=== PATIENT | female | born 1970 | race Caucasian/White ===

== ENCOUNTER 2020-11-13 08:00 | Outpatient (RCR) | payer OTHER, SELFPAY | END 2020-12-25 16:01 | disposition home or self-care (01) | LOC: PT.CARL 08:00 | PROVIDERS: Visit Provider Orthopaedic Surgery Foot and Ankle Surgery | DX: M79.672 Pain in left foot (principal) | CPT/HCPCS: 97010; 97014; 97035; 97110; 97112; 97140; 97163; 97164; G0283 ==

== ENCOUNTER 2021-06-23 11:45 | Emergency (ER) | payer OTHER, SELFPAY ==
[2021-06-23 13:45] VITALS: BP 150/100; PULSE 84; RESP 16; TEMP 37; O2SAT 100; BMI 25.1
[2021-06-23 14:48] LABS: UTC Influenza A Antigen Negative (Negative); UTC Strep Screen (Rapid) Negative (Negative)
[2021-06-23 14:49] LABS: UTC Influenza B Antigen Negative (Negative)
--- NOTE | 2021-06-23 14:52 | HMH.EDUTC ---
[facility] [place] Clinical Impression: Influenza A Disposition: Home, Self-Care Condition on Discharge: Good Instructions: DI for Influenza -- Adult Additional Instructions: covid swab was sent to lab, call tomorrow for results. self isolate until test results are known to be negative No sign of a bacterial infection. Likely viral. Viruses can take 7-14 days to run their course. Nasal saline and bulb syringe or nose Marlene to remove nasal drainage to help with nasal congestion. Hard to eat, drink, sleep with nasal congestion so important to keep this cleaned out. Monitor temp. Tylenol or Motrin as needed for pain or fever Encourage fluids, water, Gatorade, Powerade, Pedialyte if infant/toddler/child Warm salt water gargles Warm fluids Sore throat lozenges Sleep elevated Humidifier/vaporizer Follow-up immediately for new or worsening symptoms or no noticeable improvement over the next 48-72 hours. Prescriptions: Oseltamivir Phosphate [Tamiflu 75mg Capsule] 75 mg PO BID #10 cap Prescription Printed Referrals: Rosa Elena Anguiano APRN [Primary Care Provider] - Forms: Work/School Release Time of Disposition: 15:00 Medical Decision Making - Juanjose Inquiry Pt receiving controlled substance: No Vital Signs: 06/23/21 13:45 Temperature 98.6 F Temperature Source Oral Pulse Rate [Right] 84 Respiratory Rate 16 Blood Pressure [Right Arm] 150/100 H Blood Pressure Mean [Right Arm] 116 Blood Pressure Source [Right Arm] Automatic Cuff Blood Pressure Position [Right Arm] Sitting 02 Sat by Pulse Oximetry 100 Oxygen Delivery Method Room Air - Lab Data Lab Results 06/23/21 14:38: Influenza Type A Ag Negative, Influenza Type B Ag Negative 06/23/21 14:38: Strep Scn Rapid Clinic Negative Orders (Tests/Meds): ORDERS Category Date Time Status Covid-19 Nasal PCR ([facility]) Routine Lab 06/23/21 13:44 Received Strep Screen Confirmation Stat Micro 06/23/21 14:38 Received [facility] [place] - General Chief complaint: Urgent Treatment Center Stated complaint: fever/chills, cough, h/a, sore throat Time Seen by Provider: 06/23/21 14:52 Mode of Arrival: Ambulatory Source of Information: Patient Limitations: No Limitations Description of Symptoms (Recalled from Triage Doc. by RN): pt c/o cough, headache, congestion and chills for 3 days HEENT Symptoms (Recalled from RN notes): Yes Resp Symptoms (Recalled from RN notes): No Skin Symptoms (Recalled from RN notes): No MS Symptoms (Recalled from RN notes): No Functional Status (Recalled from RN notes): na - History of Present Illness Provider Complaint: 51 yr old female presents for cough, chills,body aches and headache for 2-3 days - Related Data Previous Rx's Medication Instructions Recorded Oseltamivir Phosphate [Tamiflu 75 mg PO BID #10 cap 06/23/21 75mg Capsule] Allergies Allergy/AdvReac Type Severity Reaction Status Date / Time No Known Allergies Allergy Verified 06/23/21 13:55 - Worker's Comp Is this a Worker's Comp case?: No [facility] History - Hepatitis A Screen Drug use history?: No High risk sexual behaviors?: No History of sexually transmitted infection?: No Currently employed?: No Childcare worker?: No Do you have indoor plumbing?: Yes Do you have electricity?: Yes Attestation statement:: This patient has been screened for Hepatitis A risk factors. I have reviewed the patient's past medical history: Yes ROS Obtained: Yes Systems reviewed as appropriate & no additional complaints - Constitutional Constitutional: Reports system reviewed and no additional complaints, except as docu, Reports body ache, Reports chills, Reports fatigue, Reports fever(s) - Eyes Eyes: Reports system reviewed and no additional complaints, except as docu, Denies blurry vision - ENT Ears, Nose, Mouth, and Throat: Reports system reviewed and no additional complaints, except as docu, Reports headache(s), Reports nasal congestion, Reports nasal discharge, Rep
[2021-06-23 15:01] VITALS: BP 150/100; PULSE 84; RESP 16; TEMP 37; O2SAT 100
== END 2021-06-23 15:09 | disposition home or self-care (01) ==
PROVIDERS: Emergency Provider Nurse Practitioner Family; PCP Nurse Practitioner Family
DX: J10.1 Influenza due to other identified influenza virus with other respiratory manifestations (principal)
CPT/HCPCS: 87804; 87880; 99203; C9803; G0463; U0003; U0005

== ENCOUNTER → 2021-07-09 09:57 | Outpatient (CLI) | payer OTHER, SELFPAY ==
[2021-07-09 10:00] LABS: Adenovirus,PCR Not Detected (NotDetected); Bordetella Pertussis Not Detected (NotDetected); Chlamydophila Pneumoniae, PCR Not Detected (NotDetected); Coronavirus 229E Not Detected (NotDetected); Coronavirus NL63 Not Detected (NotDetected); Coronavirus OC43 Not Detected (NotDetected); Coronovirus HKU1,PCR Not Detected (NotDetected); Human Metapneumovirus Not Detected (NotDetected); Influenza A, PCR Not Detected (NotDetected); Influenza AH1, 2009 Not Detected (NotDetected); Influenza AH1, PCR Not Detected (NotDetected); Influenza AH3,PCR Not Detected (NotDetected); Influenza B, PCR Not Detected (NotDetected); Mycoplasma Pneumoniae, PCR Not Detected (NotDetected); Parainfluenza 1, PCR Not Detected (NotDetected); Parainfluenza 2, PCR Not Detected (NotDetected); Parainfluenza 3, PCR Not Detected (NotDetected); Parainfluenza 4, PCR Not Detected (NotDetected); Respiratory Syncytial Virus Not Detected (NotDetected); Rhinovirus/Enterovirus Not Detected (NotDetected)
[2021-07-09 17:07] LABS: Coronavirus 19, PCR Detected (NotDetected)
== END ==
PROVIDERS: Visit Provider Nurse Practitioner Family
DX: U07.1 COVID-19 (principal); R05.9 Cough, unspecified; J06.9 Acute upper respiratory infection, unspecified
CPT/HCPCS: 87581; 87632; 87798; C9803; U0003; U0005

== ENCOUNTER 2021-07-30 08:00 | Outpatient (RCR) | payer MEDICARE, OTHER, SELFPAY | END 2021-09-03 15:03 | disposition home or self-care (01) | LOC: OT 08:00 | PROVIDERS: PCP Nurse Practitioner Family; Visit Provider Orthopaedic Surgery | DX: M18.11 Unilateral primary osteoarthritis of first carpometacarpal joint, right hand (principal); Z96.691 Finger-joint replacement of right hand | CPT/HCPCS: 97010; 97014; 97035; 97110; 97140; 97165; G0283 ==

== ENCOUNTER → 2022-03-04 07:34 | Outpatient (CLI) | payer MEDICARE, OTHER, SELFPAY | PROVIDERS: PCP Family Medicine; Visit Provider Family Medicine | DX: E23.2 Diabetes insipidus (principal) | CPT/HCPCS: 82533 ==

== ENCOUNTER → 2022-03-14 10:15 | Outpatient (CLI) | payer MEDICARE, OTHER, SELFPAY | PROVIDERS: PCP Physician Assistant; Visit Provider Physician Assistant | DX: R30.0 Dysuria (principal); B96.29 Other Escherichia coli [E. coli] as the cause of diseases classified elsewhere | CPT/HCPCS: 87086; 87088; 87186 ==

== ENCOUNTER → 2022-04-07 12:00 | Outpatient (CLI) | payer MEDICARE, OTHER, SELFPAY | PROVIDERS: PCP Family Medicine; Visit Provider Family Medicine | DX: R30.0 Dysuria (principal) | CPT/HCPCS: 87086 ==

== ENCOUNTER → 2022-07-16 13:55 | Outpatient (CLI) | payer MEDICARE, OTHER, SELFPAY ==
--- NOTE | 2022-07-16 14:06 | XR_ITS ---
FINAL REPORT CLINICAL HISTORY: R HIP PAIN FINDINGS: AP and frog leg views of the right hip with an AP pelvis were obtained. There is no prior exam for comparison. There is no acute fracture or dislocation. There is mild degenerative disease of the hips, asymmetric to the left. There is widening of the pubic symphysis, age indeterminate. Soft tissues are within normal limits. IMPRESSION: 1. Mild degenerative disease of the hips. 2. Age-indeterminate widening of the pubic symphysis. Reviewed, Interpreted and Dictated by Nirmala Mcdermott MD Transcribed by Melly Motley Authenticated and [facility]
== END ==
PROVIDERS: PCP Family Medicine; Visit Provider Physician Assistant
DX: M25.551 Pain in right hip (principal)
CPT/HCPCS: 73502

== ENCOUNTER 2022-08-19 08:00 | Outpatient (RCR) | payer MEDICARE, OTHER, SELFPAY | END 2022-09-18 16:15 | disposition home or self-care (01) | LOC: PT 08:00 | PROVIDERS: PCP Family Medicine; Visit Provider Anesthesiology | DX: M25.551 Pain in right hip (principal) | CPT/HCPCS: 97010; 97014; 97035; 97110; 97140; 97163; G0283 ==

== ENCOUNTER → 2022-10-15 17:04 | Outpatient (CLI) | payer MEDICARE, OTHER, SELFPAY | PROVIDERS: PCP Nurse Practitioner Family; Visit Provider Nurse Practitioner Family | DX: N39.0 Urinary tract infection, site not specified (principal) | CPT/HCPCS: 87086 ==

== ENCOUNTER → 2023-05-18 16:00 | Outpatient (CLI) | payer MEDICARE, OTHER, SELFPAY | PROVIDERS: PCP Family Medicine; Visit Provider Family Medicine | DX: R05.9 Cough, unspecified (principal); J02.9 Acute pharyngitis, unspecified; H92.02 Otalgia, left ear | CPT/HCPCS: 87635 ==

== ENCOUNTER 2023-08-14 19:44 | Outpatient (CLI) | payer MEDICARE, OTHER, SELFPAY | END 2023-08-14 23:59 | LOC: LAB.DROPOF 19:45 | PROVIDERS: PCP Nurse Practitioner Family; Visit Provider Nurse Practitioner Family | DX: R30.0 Dysuria (principal) | CPT/HCPCS: 87086 ==

== ENCOUNTER 2023-10-20 10:00 | Outpatient (RCR) | payer MEDICARE, OTHER, SELFPAY | END 2023-11-11 07:55 | disposition home or self-care (01) | LOC: PT 10:00 | PROVIDERS: Visit Provider Orthopaedic Surgery Adult Reconstructive Orthopaedic Surgery | DX: M16.11 Unilateral primary osteoarthritis, right hip (principal); Z96.641 Presence of right artificial hip joint | CPT/HCPCS: 97010; 97110; 97112; 97116; 97163; 97530 ==

== ENCOUNTER 2023-11-16 16:49 | Outpatient (CLI) | payer MEDICARE, OTHER, SELFPAY | END 2023-11-16 23:59 | disposition home or self-care (01) | LOC: LAB.DROPOF 16:50 | PROVIDERS: PCP Family Medicine; Visit Provider Family Medicine | DX: R39.9 Unspecified symptoms and signs involving the genitourinary system (principal); B96.29 Other Escherichia coli [E. coli] as the cause of diseases classified elsewhere | CPT/HCPCS: 87086; 87088; 87186 ==

== ENCOUNTER 2024-05-11 10:10 | Outpatient (CLI) | payer MEDICARE, OTHER, SELFPAY ==
[2024-05-11 16:16] LABS: Basophils % 1.2 % (0.1-2.0); Eosinophils # 0.1 K/mm3 (0.0-0.4); Eosinophils % 1.4 % (0.1-12.0); Hematocrit 37.8 % (37.0-47.0); Hemoglobin 13.3 g/dL (12.2-16.2); Lymphocytes % 29.9 % (10-50); Mean Corpuscular HGB Conc 35.2 g/dL (31.8-35.4); Mean Corpuscular Hemoglobin 34.3 pg (27.0-31.2); Mean Corpuscular Volume 97.5 fl (81-99); Mean Platelet Volume 8.4 fl (7.4-10.4); Monocytes # 0.6 K/mm3 (0.1-1.0); Monocytes % 16.8 % (1.7-9.3); Neutrophils # 1.8 K/mm3 (1.8-7.8); Neutrophils % 50.8 % (37.0-80.0); Platelet Count 262 K/mm3 (142-424); Red Blood Count 3.88 M/mm3 (4.20-5.40); Red Cell Distribution Width 13.4 % (11.5-17.5); White Blood Count 3.5 K/mm3 (4.8-10.8)
[2024-05-11 16:42] LABS: Alanine Aminotransferase 18 U/L (12-78); Albumin Level 4.4 g/dl (3.5-5.0); Albumin/Globulin Ratio 1.5 (1.1-1.8); Alkaline Phosphatase 83 U/L (38-126); Anion Gap 14.5 mEq/L (5-15); Aspartate Amino Transferase 35 U/L (14-36); Bilirubin,Total 0.7 mg/dl (0.2-1.3); Blood Urea Nitrogen 14 mg/dl (7-17); Calcium 9.1 mg/dl (8.4-10.2); Carbon Dioxide 26 mmol/L (22.0-30.0); Chloride 98 mmol/L (98-107); Chol/HDL Ratio 4.8 (1-3.5); Cholesterol 265 mg/dl (140-200); Estimated Glomerular Filt Rate 58 ml/min (>60); GFR (African American) 70 ML/MIN (>60); Glucose 73 mg/dl (74-100); HDL Cholesterol 55 mg/dl (40-60); Potassium 4.5 mmoL/L (3.5-5.1); Sodium 134 mmol/L (136-145); Total Protein,Serum 7.4 g/dl (6.3-8.2); Triglycerides 198 mg/dl (30-150); VLDL Cholesterol 40 mg/dL (0-40)
[2024-05-11 16:51] LABS: Microalbumin/Creatinine Ratio 40.6
[2024-05-11 16:54] LABS: Direct LDL Cholesterol 158.92 mg/dL (100-129)
[2024-05-11 16:57] LABS: Creatinine,Urine Random 125 mg/dL (Not Estab.)
[2024-05-11 17:12] LABS: Thyroid Stimulating Hormone 1.28 uIU/mL (0.465-4.68)
[2024-05-11 17:59] LABS: HIV (1&2) Antibody Rapid NONREACTIVE (NONREACTIVE)
[2024-05-12 05:15] LABS: HCV Ab Non Reactive (Non Reactive)
== END 2024-05-11 23:59 | disposition home or self-care (01) ==
LOC: LAB.DROPOF 05-12 11:39
PROVIDERS: PCP Family Medicine; Visit Provider Family Medicine
DX: I10 Essential (primary) hypertension (principal); M79.7 Fibromyalgia; E23.2 Diabetes insipidus; Z11.59 Encounter for screening for other viral diseases; Z79.899 Other long term (current) drug therapy; Z11.4 Encounter for screening for human immunodeficiency virus [HIV]
CPT/HCPCS: 80053; 80061; 82043; 82570; 84443; 85025; 86803; 87389

== ENCOUNTER 2024-08-03 14:15 | Outpatient (CLI) | payer MEDICARE, SELFPAY | END 2024-08-03 23:59 | disposition home or self-care (01) | LOC: LAB.DROPOF 08-04 13:00 | PROVIDERS: PCP Family Medicine; Visit Provider Family Medicine | DX: N39.0 Urinary tract infection, site not specified (principal) | CPT/HCPCS: 87086; 87088; 87186 ==

== ENCOUNTER 2024-09-21 08:20 | Outpatient (CLI) | payer MEDICARE, SELFPAY ==
[2024-09-21 17:01] LABS: Basophils % 0.5 % (0.1-2.0); Eosinophils # 0.1 K/mm3 (0.0-0.4); Eosinophils % 1.1 % (0.1-12.0); Hematocrit 38.8 % (37.0-47.0); Lymphocytes % 18.7 % (10-50); Mean Corpuscular HGB Conc 33.5 g/dL (31.8-35.4); Mean Corpuscular Hemoglobin 32.7 pg (27.0-31.2); Mean Corpuscular Volume 97.7 fl (81-99); Mean Platelet Volume 10.5 fl (7.4-10.4); Monocytes # 1.3 K/mm3 (0.1-1.0); Monocytes % 23.4 % (1.7-9.3); Neutrophils # 3.1 K/mm3 (1.8-7.8); Neutrophils % 56.1 % (37.0-80.0); Platelet Count 210 K/mm3 (142-424); Red Blood Count 3.97 M/mm3 (4.20-5.40); Red Cell Distribution Width 12.5 % (11.5-17.5); White Blood Count 5.5 K/mm3 (4.8-10.8)
[2024-09-21 17:02] LABS: MANUAL DIFFERENTIAL MANUAL DIFFERENTIAL (MANUAL DIFF)
[2024-09-21 17:17] LABS: Eosinophils % 2 % (0-3); Lymphocytes % 21 % (10-50); Monocytes % 22 % (2-9); Neutrophils % 55 % (42-76); Platelet Estimate Normal; RBC Morphology Normal; Total Cells Counted 100
[2024-09-21 17:25] LABS: Alanine Aminotransferase 21 U/L (12-78); Albumin Level 4.5 g/dl (3.5-5.0); Albumin/Globulin Ratio 1.6 (1.1-1.8); Alkaline Phosphatase 82 U/L (38-126); Anion Gap 16.7 mEq/L (5-15); Aspartate Amino Transferase 37 U/L (14-36); Bilirubin,Total 0.6 mg/dl (0.2-1.3); Blood Urea Nitrogen 13 mg/dl (7-17); Calcium 9.5 mg/dl (8.4-10.2); Carbon Dioxide 24 mmol/L (22.0-30.0); Chloride 96 mmol/L (98-107); Chol/HDL Ratio 4.2 (1-3.5); Cholesterol 240 mg/dl (140-200); Estimated Glomerular Filt Rate 51 ml/min (>60); GFR (African American) 62 ML/MIN (>60); Globulin 2.9 g/dL (1.3-3.2); Glucose 54 mg/dl (74-100); HDL Cholesterol 57 mg/dl (40-60); Potassium 4.7 mmoL/L (3.5-5.1); Sodium 132 mmol/L (136-145); Total Protein,Serum 7.4 g/dl (6.3-8.2); Triglycerides 150 mg/dl (30-150); VLDL Cholesterol 30 mg/dL (0-40)
[2024-09-21 17:35] LABS: Direct LDL Cholesterol 123.48 mg/dL (100-129)
[2024-09-21 17:55] LABS: Thyroid Stimulating Hormone 1.19 uIU/mL (0.465-4.68)
[2024-09-21 19:27] LABS: Hemoglobin A1C 5.3 % (4.0-6.0)
== END 2024-09-21 23:59 | disposition home or self-care (01) ==
LOC: LAB.DROPOF 09-22 11:02
PROVIDERS: PCP Family Medicine; Visit Provider Family Medicine
DX: I10 Essential (primary) hypertension (principal)
CPT/HCPCS: 80053; 80061; 83036; 84443; 85007; 85025; 85027

== ENCOUNTER 2024-09-26 09:31 | Outpatient (CLI) | payer MEDICARE, SELFPAY | END 2024-09-26 23:59 | disposition home or self-care (01) | LOC: LAB.DROPOF 09-27 13:21 | PROVIDERS: PCP Nurse Practitioner Family; Visit Provider Nurse Practitioner Family | DX: R30.0 Dysuria (principal); R35.0 Frequency of micturition | CPT/HCPCS: 87086; 87088; 87186 ==

== ENCOUNTER 2025-03-20 13:19 | Outpatient (CLI) | payer MEDICARE, SELFPAY ==
--- OUTSIDE RECORDS SUMMARY | 2025-03-21 13:24 | XMS_ITS ---
Author Organization Unknown TREATMENT PLAN Planned Care Start Date Provider Encounter for Check-up [id number] [facility]
--- OUTSIDE RECORDS SUMMARY | 2025-03-21 13:24 | XMS_ITS | Clinical Summary ---
Author Organization [facility] Address [address] [place] [address] Care Team Providers Care Trimmer Sorter Name Role Phone Jovany Slaughter MD Primary Care Provider +1- [phone] Allergies Active Allergy Reactions Criticality Noted Date Comments Amoxicillin Hives 07/11/2020 Carvedilol Hives,Itching 07/11/2020 Hydrocodone Hives,Itching 07/11/2020 Lisinopril Itching,Cough 07/11/2020 Loratadine Hives 07/11/2020 Meperidine Hives,Itching High 04/30/2022 Milnacipran Hives,Itching Medium 07/12/2018 Oxycodone-Acetaminophen Itching High 02/23/2020 Sulfa Antibiotics Hives 05/15/2016 Tramadol Itching High 11/08/2020 Medications cetirizine (zyrTEC) 10 MG tablet Take 1 tablet by mouth Daily. Active traZODone (DESYREL) 50 MG tablet 1 tablet Daily. Active KRILL OIL PO Take 1 tablet by mouth Daily. Active promethazine (PHENERGAN) 25 MG tablet As Needed. Active cyclobenzaprine (FLEXERIL) 5 MG tablet Take 1 tablet by mouth At Night As Needed. 1 Active Stool Softener 100 MG capsule 1 capsule Daily. 1 Active DULoxetine (CYMBALTA) 20 MG capsule 3 capsules Daily. 1 Active ondansetron ODT (ZOFRAN-ODT) 4 MG disintegrating tablet As Needed. 1 Active propranolol (INDERAL) 20 MG tablet Take 1 tablet by mouth Daily. 1 Active montelukast (SINGULAIR) 10 MG tablet Take 1 tablet by mouth Daily. 1 Active losartan (COZAAR) 50 MG tablet Take 1 tablet by mouth Daily. 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 She had pulmonary carcinoid measuring 3 cm that was removed from her right lung. In 2001 she had a lymph node removed that was producing ACTH behind her sternum. She was asymptomatic until February 2018 and she developed recurrence of symptoms as discussed in her initial visit with me. She went back to [place] in 2017 and had work-up with a salivary cortisol levels noted in the chart above. 1 mg overnight dexamethasone suppression test showed an AM cortisol of 1.0 mcg/dL. [facility] stim test showed a baseline ACTH of 50.5 pg/mL, increasing to 53.3 and 46.6 pg/mL and 15 and 50 minutes. GA-68 Dotatate scan done 06/16/2018 was negative for increased uptake except in the thyroid area. Dr. Cardoso updated labs on 02/17/2019 including ACTH at 11 AM that was 32 pg/mL, random cortisol 5.9 mcg/dL, 24-hour urine 5 HIAA 3.9 mg/24 hours. Prolactin 7.7 ng/mL, IGF-I 127 ng/mL, FSH 128.5, LH 51.2, urine osmolality 137 mcg/kg, A1c 5.3. 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 11/08/2020 Immunizations Immunization Administration Dates Next Due Flu Vaccine Quad PF >36MO 03/29/2020 Fluzone (or Fluarix & Flulaval for VFC) >6mos Fluzone Quad >6mos (Multi-dose) 04/12/2019 Influenza, Unspecified 04/12/2018 Family History Medical History Relation Name Comments No Known Problems Father Breast cancer Maternal Grandmother Diabetes Maternal Grandmother Hypertension Maternal Grandmother Kidney disease Maternal Grandmother Heart attack Mother Hypertension Mother Thyroid disease Mother Breast cancer Paternal Grandmother Hypertension Paternal Grandmother Relation Name Status Comments Father Alive Maternal Grandmother Mother Alive Paternal Grandmother Social History Tobacco Use Types Packs/Day Years Used Date Smoking Tobacco: Former Cigarettes 0.5 5 2 000 - 2005 Smokeless Tobacco: Never Alcohol Use Standard Drinks/Week Comments Yes 0 (1 standard drink = 0.6 oz pur e alcohol) social Abuse Screen Answer Date Recorded Unsafe at Home or Work/School Not on file Feels Threatened by Someone? Not on file 02/2023 Does Anyone Keep You from Co ntacting Others or Doint Things Outside the Home? Not on file 04/06/2023 Physical Sign of Abuse Present Not on file 1 Housing Stability Answer Date Recorded Current Living Arrangements Not on file 02/2023 Potentially Unsafe Housing Conditions Not on tammy e 04/06/2023 Family and Community Support Answer Poli e Recorded Help with Day-to-Day Activities Not on file 04/06/2023 Lonely or Isolated Not on file 04/06/2023 Employment Answer Date Recorded Do you want help finding or keeping work or a diana b? Not on file 04/06/2023 Disabilities Answer Date Recorded Concentrating, Remembering, or Making Decisions Difficulty Not on file 04/06/2023 Doing Errands Independently Difficulty Not on fi le 04/06/2023 Education Answer Date Recorded Help with school or training? Not on file Preferred Language Not on file 04/06/2023 Comments No Sex and Gender Information Value Date Recorded Sex Assigned at Not on file Legal Sex Female 10:54 AM EDT Gender Identity Not on file Sexual Orientation Not on file Last Filed Vital Signs Vital Sign Reading Time Taken Comments Blood Pressure 100/66 09/03/2022 10:31 AM EST Pulse 69 02/10/2022 2:02 PM EDT Temperature 36.7 C (98 F) 11/08/2020 9:28 AM EDT Respiratory Rate 16 12/28/2016 11:39 AM EDT Oxygen Saturation 95% 02/10/2022 2:02 PM EDT Inhaled Oxygen Concentration - - Weight 84.8 kg (187 lb) 09/03/2022 10:31 AM EST Height 175.3 cm (5' 9 ) 09/03/2022 10:31 AM EST Body Mass Index 27.62 09/03/2022 10:31 AM EST Plan of Treatment Health Maintenance Due Date Last Done Comments MAMMOGRAM 2008 COLOGUARD 2013 COLON CANCER SCREENING 5 YEA R SIGMOIDOSCOPY 2013 COLONOSCOPY 2013 COL[address]AL CANCER SCREENING 2013 CT COLONOGRAPHY 2013 FECAL OCCULT BLOOD TEST 2013 FIT Testing (1 year) 2013 ANNUAL WELLNESS VISIT 12/28/2016 HEPATITIS C SCREENING 12/28/2016 Pneumococcal Vaccine 50+ (1 of 1 - PCV) 2018 ZOSTER VACCINE (1 of 2) 2018 TDAP/TD VACCINES (2 - Td or Tdap) 05/09/2021 011 Annual Gynecologic Pelvic an d Breast Exam 09/05/2023 09/03/2022 INFLUENZA VACCINE 01/27/2025 03/30/2020, , 04/12/2019, Additional history exists Insurance MEDICARE ADVANTAGE Care Teams Trimmer Sorter Relationship Specialty Start Date End Date Jovany Slaughter MD PCP - General Family Medicine 08/11/22
--- OUTSIDE RECORDS SUMMARY | 2025-03-21 13:24 | XMS_ITS | Clinical Summary ---
Author Organization [facility] Address [address] [place] [address] Care Team Providers Care Button Breaker Name Role Phone Shonna Beckwith MD Unavailable Jovany Slaughter MD Primary Care Provider Uma vailable Allergies Active Allergy Reactions Criticality Noted Date Comments Amoxicillin Itching,Hives,Unknow n - Patient states they do not know rxn details Medium 07/12/2018 Carvedilol Itching,Hives Medium 07/12/2018 Hydrocodone-Acetaminophen Unknown - Allyn ent states they do not know rxn details,Itching,Hives Medium 07/12/2018 Lisinopril Itching,Hives,Unknow n - Patient states they do not know rxn details Medium 07/12/2018 Milnacipran Itching,Hives Medium 07/12/2018 Oxycodone Hives,Itching Medium 09/10/2023 Sulfacetamide Itching,Hives Medium 07/12/2018 Medications DULoxetine (Cymbalta) [address] capsule Take 1 capsule (60 mg) by mouth 1 (one) time each day. 1 Active Stool Softener 100 MG capsule Take 1 capsule (100 mg) by mouth 1 (one) time each day. 1 Active cetirizine (ZyrTEC) 10 MG tablet Take 1 tablet (10 mg) by mouth 1 (one) time each day. Active montelukast (Singulair) 10 MG tablet Take 1 tablet (10 mg) by mouth every night. 1 Active propranolol (Inderal) 20 MG tablet Take 1 tablet (20 mg) by mouth 2 (two) times a day. 1 Active sertraline (Zoloft) 50 MG tablet Take 1 tablet (50 mg) by mouth every night. 1 Active traZODone (Desyrel) 50 MG tablet Take 1 tablet (50 mg) by mouth every night. 1 Active cyclobenzaprine (Flexeril) 10 MG tablet Take 1 tablet (10 mg) by mouth every night. As needed 2 Active pregabalin (Lyrica) 100 MG capsule Take 1 capsule (100 mg) by mouth 3 (three) times a day. Active losartan (Cozaar) 100 MG tablet Take 1 tablet (100 mg) by mouth 1 (one) time each day. Active nitrofurantoin (Macrodantin) 50 MG capsule Take 1 capsule (50 mg) by mouth 1 (one) time each day. For UTI Prophylaxis Active mirabegron ER (Myrbetriq) 25 MG tablet Take 1 tablet (25 mg) by mouth 1 (one) time each day. Active amLODIPine (Norvasc) 10 MG tablet Take 1 tablet (10 mg) by mouth 1 (one) time each day. Active oxyCODONE (Roxicodone) 5 MG immediate release tablet Take 1 tablet (5 mg) by mouth every 6 (six) hours if needed for severe pain for up to 30 doses. 30 tablet 4 Active methocarbamol (Robaxin) 500 MG tablet Take 1 tablet (500 mg) by mouth 3 (three) times a day if needed for muscle spasms. 30 tablet 4 Active acetaminophen (Tylenol Extra Strength) 500 MG tablet Take 2 tablets (1,000 mg) by mouth every 8 (eight) hours. 100 tablet 4 Active mupirocin (Bactroban) 2 % ointment Apply to area twice daily 1 g 1 4 Active Active Problems Problem Noted Date Diagnosed Date Arthritis of right hip 09/14/2023 Arthritis of hip 03/31/2023 Immunizations Immunization Administration Dates Next Due Tdap 05/09/2011 Family History Medical History Relation Name Comments Breast cancer Maternal Grandmother Cardiac disorder Mother Paulina Goiter Mother Paulina Osteoporosis Mother Paulina Rheumatologic disease Mother Paulina Cardiac disorder Other 1 Hypertension Other 2 Breast cancer Other 3 FH: breast can cer Breast cancer Paternal Grandmother Mary Jane Diabetes Paternal Grandmother Mary Jane Anesthesia problems Neg Hx Malig Hyperthermia Neg Hx Relation Name Status Comments Maternal Grandmother Mother Paulina Other 1 Other 2 Other 3 Paternal Grandmother Mary Jane Social History Tobacco Use Types Packs/Day Years Used Date Smoking Tobacco: Former Cigarettes 0.5 20 0 06/29/1989 - 06/29/2009 Smokeless Tobacco: Never Tobacco Cessation:Counseling Given: Not Answered Alcohol Use Standard Drinks/Week Comments Yes 3 (1 standard drink = 0.6 oz pur e alcohol) Per week PHQ-2 Answer Date Recorded Patient Health Questionnaire-2 Score 0 05/20/2021 Comments No Sex and Gender Information Value Date Recorded Sex Assigned at Not on file Legal Sex Female 7:26 PM EDT Gender Identity Not on file Sexual Orientation Not on file Last Filed Vital Signs Vital Sign Reading Time Taken Comments Blood Pressure 110/76 10/27/2023 11:18 AM EDT Pulse 78 10/27/2023 11:18 AM EDT Temperature 36.3 C (97.4 F) 09/14/2023 11:15 AM EDT Respiratory Rate 16 09/14/2023 3:00 PM EDT Oxygen Saturation 97% 10/27/2023 11:18 AM EDT Inhaled Oxygen Concentration - - Weight 81.6 kg (180 lb) 10/27/2023 11:18 AM EDT Height 172.7 cm (5' 8 ) 10/27/2023 11:18 AM EDT Body Mass Index 27.37 10/27/2023 11:18 AM EDT Plan of Treatment Health Maintenance Due Date Last Done Comments [facility]-HIV Screening 1968 [facility]-Hepatitis C Screening 1968 [facility]-Medicare Annual Wellness (AWV) 1968 [facility]-Infant/Child/Adol SDOH Screenings 1968 [facility]- SDOH Screenings 1986 [facility]-Adult SDOH Screenings 1986 [facility]-Hepatitis B Vaccines (1 of 3 - 19+ 3-dose series) 1987 [facility]-Pap Smear 1989 [facility]-Cervical Cancer Screening 1998 [facility]-HPV/Cotest 1998 CT Colonography 2013 Colonoscopy 2013 FIT-DNA 2013 FIT 2013 FOBT 2013 Sigmoidoscopy 2013 [facility]-Colorectal Cancer Screening 2013 [facility]-Breast Cancer Screening 2018 [facility]-Pneumococcal Vaccine: 50+ Years (1 of 1 - PCV) 2018 [facility]-Zoster Vaccines (1 of 2) 2018 [facility]-DTaP,Tdap,and Td Vaccines (2 - Td or Tdap) 05/09/2021 05/09/2011 [facility]-Depression Screening 05/20/2022 05/20/2021 [id number] Vaccine ( - season) 2025 03/21/2021, 09/20/2020, 08/23/2020 [facility]-Influenza Vaccine (#1) 02/27/202505/01, 05/12/2022, 03/29/2020, Additional history exists [facility]-Obesity Intervention Completed 024, 09/25/2023, 03/31/2023, Additional history exists HPV Vaccines Aged Out No longer eligi ble based on patient's age to complete this topic [facility]-HIB Vaccines Aged Out No longer e ligible based on patient's age to complete this topic [facility]-Hepatitis A Vaccines Aged Out No longer eligible based on patient's age to complete this topic [facility]-IPV Vaccines Aged Out No longer e ligible based on patient's age to complete this topic [facility]-Rotavirus Vaccines Aged Out No lo nger eligible based on patient's age to complete this topic Medical Devices Implanted Type Area Straddle Bug Operator Device Identifier Shelf Expiration Date Model / Serial / Lot Chg Shell R3 3 Hole Acet 50mm - [id number] Implanted:Qty: 1 on 09/14/2023 by Chris Cox MD at [facility] Implant Right: Hip [id number] 06/04/2033 [id number] / / [id number] Chg Screw Ref Spher Head 35mm - [id number] Implanted:Qty: 1 on 09/14/2023 by Chris Cox MD at [facility] Implant Right: Hip [employer]-[id number] 02/24/2033 [id number] / / [id number] Chg Screw Ref Spher Head 25mm - [id number] Implanted:Qty: 1 on 09/14/2023 by Chris Cox MD at [facility] Implant Right: Hip [employer]-[id number] 02/10/2033 [id number] / / [id number] Liner Or3o Dual Mbility 38 50 - [id number] Implanted:Qty: 1 on 09/14/2023 by Chris Cox MD at [facility] Implant Right: Hip [employer]-[id number] 04/04/2033 [id number] / / [id number] Polarstem Cementless Lat Tiha - [id number] Implanted:Qty: 1 on 09/14/2023 by Chris Cox MD at [facility] Implant Right: Hip [employer]-[id number] 12/18/2028 [id number] / / [id number] Chg Head Oxinium Fem 06/11 28m - [id number] Implanted:Qty: 1 on 09/14/2023 by Chris Cox MD at [facility] Implant Right: Hip [employer]-[id number] 12/21/2032 [id number] / / [id number] Liner Or3o Dual Mbility Xlpe 28/38 - [id number] Implanted:Qty: 1 on 09/14/2023 by Chris Cox MD at [facility] Implant Right: Hip [employer]-[id number] 04/23/2033 [id number] / / [id number] Insurance MEDICAID [employer] MEDICARE Advance Directives * Full Code (Latest Code Status on File) Date Activated Date Inactivated Comments 09/14/2023 9:05 AM 09/14/2023 5:09 PM Question Answer Comments Patient has decision-making capacity? Yes Care Teams Button Breaker Relationship Specialty Start Date End Date Jovany Slaughter MD [address] [place] [address] PCP - General Family Medicine 01/27/23 Shonna Beckwith MD [address] [place] [address] Consulting Physician Neurology 11/19/21
--- OUTSIDE RECORDS SUMMARY | 2025-03-21 13:24 | XMS_ITS | Encounter Summary ---
Author Organization Healthcare Address [address] [place] [address] Care Team Providers Care Business Computers Teacher Name Role Phone Rosa Elena Anguiano APRN Primary Care Provider +1- [phone] Shonna Beckwith MD Unavailable Jovany Slaughter MD Primary Care Provider Uma vailable Reason for Referral * Consultation (Routine) - Closed Specialty Diagnoses / Procedures Referred By Eze belcher Referred To Contact Orthopaedic Surgery Diagnoses Pain in right hip Darrell Bland PA [address] [place] [address] Phone: tel: fax: Chris Cox MD [address] [address] Phone: tel: fax: Referral ID Status Reason Start Date Expiration Date Visits Re quested Visits Authorized [id number] Closed 01/20/2023 07/21/2024 1 1 Encounter Details Date Type Department Care Team (Late st Contact Info) Description 01/20/2023 Community [facility] [address] [place] [address] Darrell Bland PA [address] [place] [id number] Pain in right hip (Primary Dx) Social History Tobacco Use Types Packs/Day Years Used Date Smoking Tobacco: Former Cigarettes 1 22 1 - 2019 Smokeless Tobacco: Former Alcohol Use Standard Drinks/Week Comments Yes 0 (1 standard drink = 0.6 oz pur e alcohol) PHQ-2 Answer Date Recorded Patient Health Questionnaire-2 Score 0 05/20/2021 Comments Unknown Sex and Gender Information Value Date Recorded Sex Assigned at Not on file Legal Sex Female 7:26 PM EDT Gender Identity Not on file Sexual Orientation Not on file documented as of this encounter Plan of Treatment Scheduled Referrals Name Type Priority Associated Diagnoses Order Schedule Ambulatory referral to Orthopaedics Joint Reconstruction Outpatient Referral Routine Pain in right hip Expected: 01/20/2023 (Approximate), Expires: 07/23/2024 documented as of this encounter Visit Diagnoses Diagnosis Pain in right hip- Primary documented in this encounter Additional Health Concerns Assessment Noted Time A fall risk assessment has been complete d for the patient 01/28/2022 2:32 PM EDT documented as of this encounter Care Teams Business Computers Teacher Relationship Specialty Start Date End Date Rosa Elena Anguiano, DOORSHAKER [address] [phone] PCP - General 11/09/20 01/26/23 Jovany Slaughter MD [address] [place] [address] PCP - General Family Medicine 01/27/23 Shonna Beckwith MD [address] [place] [address] Consulting Physician Neurology 11/19/21 documented as of this encounter
== END 2025-03-20 23:59 | disposition home or self-care (01) ==
LOC: LAB.DROPOF 03-21 13:19
PROVIDERS: PCP Nurse Practitioner Family; Visit Provider Nurse Practitioner Family
DX: J02.9 Acute pharyngitis, unspecified (principal)
CPT/HCPCS: 87070

== ENCOUNTER 2025-04-07 09:47 | Outpatient (CLI) | payer MEDICARE, SELFPAY ==
--- OUTSIDE RECORDS SUMMARY | 2025-04-10 09:51 | XMS_ITS | Encounter Summary ---
Author Organization Healthcare Address [address] [place] [address] Care Team Providers Care Furnace Checker Name Role Phone Rosa Elena Anguiano APRN Primary Care Provider +1- [phone] Shonna Beckwith MD Unavailable Jovany Slaughter MD Primary Care Provider Uma vailable Reason for Referral * Consultation (Routine) - Closed Specialty Diagnoses / Procedures Referred By Eze belcher Referred To Contact Orthopaedic Surgery Diagnoses Pain in right hip Darrell Bland PA [address] [place] [address] Phone: tel: fax: Chris Cox MD [address] [address] Phone: tel: fax: Referral ID Status Reason Start Date Expiration Date Visits Re quested Visits Authorized [id number] Closed 01/20/2023 07/21/2024 1 1 Encounter Details Date Type Department Care Team (Late st Contact Info) Description 01/20/2023 Community [facility] Community Practice [address] [place] [address] Darrell Blnad PA [address] [place] [id number] Pain in right hip (Primary Dx) [...] documented as of this encounter Care Teams Furnace Checker Relationship Specialty Start Date End Date RosaE lena Anguiano, RESIDENCY COORDINATOR [address] [phone] PCP - General 11/09/20 01/26/23 Jovany Slaughter MD [address] [place] [address] PCP - General Family Medicine 01/27/23 Shonna Beckwith MD [address] [place] [address] Consulting Physician Neurology 11/19/21 documented as of this encounter
--- OUTSIDE RECORDS SUMMARY | 2025-04-10 09:51 | XMS_ITS | Encounter Summary ---
Author Organization [employer] ([place], [place], [place], [place]) Address [address] [place] [address] Care Team Providers Care Body Welder Name Role Phone Unavailable Primary Care Provider Unavailabl e Encounter Details Date Type Department Care Team (Late st Contact Info) Description 05/22/2021 Transcribed Document [facility] [place] Family Medicine [address] [place] [address] ProviderHope MD [address], [place] [id number] Social History Tobacco Use Types Packs/Day Years Used Date Smoking Tobacco: Never Assessed Comments Unknown Sex and Gender Information Value Date Recorded Sex Assigned at Female 12/24/2021 3:04 PM CDT Legal Sex Female 3:04 PM CDT Gender Identity Female 12/24/2021 3:04 PM CDT Sexual Orientation Not on file documented as of this encounter Miscellaneous Notes * Cerner Conversion Note - Historical ProviderMD - 05/22/2021 11:29 AM CURING MACHINE OPERATOR Ambulatory Intake and History Entered On: 05/22/2021 11:34 EST Performed On: 05/22/2021 11:29 EST by CALEB WHITMAN General Info Ambulatory Accompanied By : Unaccompanied Chief Complaint : Fibromyalgia worst Lt foot and Bilat hands Primary Language : Gabonese CALEB WHITMAN - 05/22/2021 11:29 EST Height and Weight, Clinical Dosing Height Source : Measured Height Entry Format : [place] Height, Feet : 5 ft(Converted to: 152 cm, 60 Inch) Height, Inches : 9 Inch(Converted to: 0 ft 9 Inch, 22.86 cm) Clinical Height : 175.26 cm Weight Source : Standing scale Weight Entry Format : [place] Clinical [facility] Weight : 77.27 kg Weight, Pounds : 170 lb Body Surface Area (BSA) : 1.93 m2 Body Mass Index : 25.2 kg/m2 (HI) [place] Body Weight : 66 kg CALEB WHITMAN 05/22/2021 11:29 EST Vital Measurements Temperature Source : Temporal artery scanning Temperature Mode : Fahrenheit Temperature, Fahrenheit : 97.9 Deg F Clinical Temperature, C : 36.6 Deg C Pulse Method : Non-Invasive BP Device Pulse Source : Brachial, Right Heart Rate, Apical : 84 bpm Pulse Rhythm : Regular Blood Pressure Location : Arm, right upper Blood Pressure Source : Non-Invasive BP Device Blood Pressure Position : Sitting Systolic Blood Pressure : 141 mmHg (HI) Diastolic Blood Pressure : 95 mmHg (HI) Oxygen Saturation : 99 % Oxygen Therapy Mode : Room air CALEB WHITMAN 05/22/2021 11:29 EST Patient Health Questionnaire Depression Scale-9 (PHQ-9) Trouble Falling/Staying Asleep/Sleeping : Several days Little Interest or Pleasure Doing Things : Not at all Feeling Down, Depressed, Hopeless : Not at all Feeling Tired or Little Energy : Several days Poor Appetite or Overeating : Not at all Feel Bad About Self/That You are Failure : Not at all Trouble Concentrating on Things : Several days Moving/Speaking Slowly, Fidgety/Restless : Not at all Thoughts of Better Off /Hurting Self : Not at all PHQ-9 Score : 3 PHQ-9 Score Interpretation : Minimal depression (0-4) CALEB WHITMAN 05/22/2021 11:29 EST Functional Assessment Living Situation : Home Sensory Deficits : None Home Equipment Therapy, PT : Brace, Other: brace LT foot sx x 2 Professional Skilled Services : None CALEB WHITMAN 05/22/2021 11:29 EST Teaching/Learning Assessment Barriers To Learning : None evident Individuals Taught : Patient Readiness to Learn : Cooperative Learning Style Preferences Patient : Printed materials, Verbal explanation Learning Style Preferences Family : Printed materials, Verbal explanation CALEB WHITMAN 05/22/2021 11:29 EST Fall Risk Scales SNEED Hx Falls Immediate/Within 3 Months : No Sneed Secondary Diagnosis : No SNEED Use of Ambulatory Aid : None SNEED IV Therapy or IV Access : No Sneed Gait/Transferring : Normal, bedrest, immobile Sarah Mental Status : Oriented to own ability Sneed Fall Risk Score : 0 SNEED Fall Scale Risk Level : 0-24 Low Risk [place] Fall Interventions : Adequate lighting, Personal items within reach, Room free of clutter/spills J CARLOS CALEB - 05/22/2021 11:29 EST Sleep Apnea Risk Assmt Hx of Obstructive Sleep Apnea Diagnosis : No Snore Loudly : Yes Tired, Fatigued, or Sleepy During Day : Yes Observed Stopping Breathing During Sleep : No Have/Are Being Treated for Hypertension : Yes BMI Greater Than 35 kg/m2 : No Age over 50 Years Old : Yes Neck Circumference Greater Than 40 cm : No Gender Male : No STOP-BANG Sleep Apnea Risk Level Score : 4 CALEB WHITMAN - 05/22/2021 11:29 EST documented in this encounter Plan of Treatment Not on file documented as of this encounter Visit Diagnoses Not on filedocumented in this encounter
--- OUTSIDE RECORDS SUMMARY | 2025-04-10 09:51 | XMS_ITS | Clinical Summary ---
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 She had pulmonary carcinoid measuring 3 cm that was removed from her right lung. In 2001 she had a lymph node removed that was producing ACTH behind her sternum. She was asymptomatic until February 2018 and she developed recurrence of symptoms as discussed in her initial visit with me. She went back to [place] in 2017 and had work-up with a [...] history exists Insurance MEDICARE ADVANTAGE Care Teams Machine Crater Relationship Specialty Start Date End Date Jovany Slaughter MD PCP - General Family Medicine 08/11/22
--- OUTSIDE RECORDS SUMMARY | 2025-04-10 09:51 | XMS_ITS | Clinical Summary ---
Author Organization [employer] ([place], [place], [place], [place]) Address [address] [place] [address] Care Team Providers Care Alarm Adjuster Name Role Phone Unavailable Primary Care Provider Unavailabl e Allergies Active Allergy Reactions Criticality Noted Date Comments Amoxicillin Hives,Itching High 07/12/2018 Carvedilol Hives,Itching High 07/12/2018 Hydrocodone Hives,Itching High 07/11/2020 Hydrocodone-Acetaminophen Hives,Itching High 019 Lisinopril Hives,Itching High 07/12/2018 Other reaction(s): Cough, Unknown Loratadine Hives High 07/11/2020 Meperidine Hives,Itching High 04/30/2022 Milnacipran Hives,Itching High 07/12/2018 Oxycodone Hives,Itching High 04/30/2022 Oxycodone-Acetaminophen Hives,Itching High 0 Sulfa (Sulfonamide Antibiotics) Hives,Itching High 05/15/2016 Tramadol Itching High 11/08/2020 Medications DULoxetine (Cymbalta) 60 MG capsule Take 1 tablet by mouth daily. 05/22/2021 Active doxazosin (CARDURA) 1 MG tablet Take 1 tablet by mouth daily. 10/22/2021 Active iron polysacch/iron heme polyp (IRON POLYSAC-IRON HEME POLYPEP ORAL) Take by mouth. Active zynyt-vt-0-dha-e mn-sqjfyay-stn (krill oil) 1,858-359-35-80 mg Cap Take 1 tablet by mouth daily. Active losartan (COZAAR) 50 MG tablet Take 1 tablet by mouth daily. 05/22/2021 Active propranoloL (INDERAL) 20 MG tablet Take 1 tablet by mouth 2 (two) times daily. 05/22/2021 Active montelukast (Singulair) 10 mg tablet Take 1 tablet by mouth daily. 05/22/2021 Active traZODone (DESYREL) 50 MG tablet Take 1 tablet by mouth daily. 05/22/2021 Active sertraline (Zoloft) 50 MG tablet Take 1 tablet by mouth daily. 05/22/2021 Active cetirizine (ZyrTEC) 10 MG tablet Take 1 tablet by mouth daily. 05/22/2021 Active amLODIPine (NORVASC) 10 MG tablet Take 10 mg by mouth daily. 04/16/2022 Active cyclobenzaprine (FLEXERIL) 10 MG tablet Take 10 mg by mouth nightly. 04/16/2022 Active Active Problems No known active problems Family History Medical History Relation Name Comments Lumbar disc disease Father High blood pressure Maternal Aunt Rheum arthritis Maternal Aunt Alcohol abuse Maternal Grandfather Cancer Maternal Grandmother Diabetes Maternal Grandmother High blood pressure Maternal Grandmother Kidney disease Maternal Grandmother Arthritis Mother Broken bones Mother High blood pressure Mother Lumbar disc disease Mother Cancer Paternal Aunt Cancer Paternal Grandmother Relation Name Status Comments Father Maternal Aunt Maternal Grandfather Maternal Grandmother Mother Paternal Aunt Paternal Grandmother Social History Tobacco Use Types Packs/Day Years Used Date Smoking Tobacco: Former Cigarettes Q uit: 10/29/2003 Smokeless Tobacco: Never Tobacco Cessation:Counseling Given: Yes Alcohol Use Standard Drinks/Week Comments Yes 2 (1 standard drink = 0.6 oz pur e alcohol) Food Insecurity Answer Date Recorded Food run out past 12 months Not on file 06/29 Food did not last past 12 months Not on file 07/17/2023 Employment Answer Date Recorded Help finding and keeping a job Not on file 0 07/17/2023 Family and Community Support Answer Poli e Recorded Help with Day to Day Activities Not on file 07/17/2023 Feeling Lonely or Isolated Not on file 07/17 Educational Attainment Answer Date Urban rded Speak language other than [place] at home Not on file 07/17/2023 Want help with school or training Not on file 07/17/2023 Substance Use Answer Date Recorded Used prescription meds for non-medical reasons N ot on file 07/17/2023 Used illegal drugs past 12 months Not on file 07/17/2023 Comments Unknown Sex and Gender Information Value Date Recorded Sex Assigned at Female 12/24/2021 3:04 PM CDT Legal Sex Female 3:04 PM CDT Gender Identity Female 12/24/2021 3:04 PM CDT Sexual Orientation Not on file Last Filed Vital Signs Vital Sign Reading Time Taken Comments Blood Pressure 108/72 04/30/2022 10:16 AM EDT Pulse 86 04/30/2022 10:16 AM EDT Temperature 35.8 C (96.5 F) 04/30/2022 10:16 AM EDT Respiratory Rate 15 04/30/2022 10:16 AM EDT Oxygen Saturation 97% 04/30/2022 10:16 AM EDT R/A Inhaled Oxygen Concentration - - Weight 81.6 kg (180 lb) 04/30/2022 10:16 AM EDT Height 172.7 cm (5' 8 ) 04/30/2022 10:16 AM EDT Body Mass Index 27.37 04/30/2022 10:16 AM EDT Plan of Treatment Health Maintenance Due Date Last Done Comments CT Colonography 1968 Colonoscopy 1968 Colorectal Cancer Screening 1968 FOBT/FIT 1968 Fit-DNA (Cologuard) 1968 Sigmoidoscopy 1968 Depression Screening (12+) 1980 HIV Screening 1983 Hepatitis C Screening 1986 Pap Smear 1989 Breast Cancer Screening 2008 Lipid Panel 2013 Pneumococcal 50+ years (1 of 1 - PCV) 2018 Shingles Vaccine (Zoster) (1 of 2) 2018 DTAP/TDAP/TD VACCINES (2 - T d or Tdap) 05/09/2021 05/09/2011 Tobacco Cessation Counseling and Screening (12+) 04/30/2023 04/30/2022 COVID-19 VACCINE ( - 2024- season) 2025 03/21/2021, 09/20/2020, 08/23/2020 Influenza Vaccine (#1) 2025 03/30/2020, 2018 Goals Goal Patient Goal Type Associated Problems Recent Progress Patient-Stated? Author Increase physical activity Lifestyle Rabia Key, RN Note: High BMI Intervention and follow up (physical activity) Insurance [facility] [employer] [facility] [place]AN [place]
--- OUTSIDE RECORDS SUMMARY | 2025-04-10 09:52 | XMS_ITS | Encounter Summary ---
Author Organization [employer] ([place], [place], [place], [place]) Address [address] [place] [address] Care Team Providers Care Cryptoanalysis Teacher Name Role Phone Unavailable Primary Care Provider Unavailabl e Encounter Details Date Type Department Care Team (Late st Contact Info) Description 05/22/2021 Transcribed Document [facility] [place] [address] [place] [address] ProviderHope MD [address] [place], [place] [address] Social History Tobacco Use Types Packs/Day Years [...] Conversion Note - Historical ProviderMD - 05/22/2021 12:08 PM PSYCHOMETRICIAN Nursing Discharge Summary Entered On: 05/22/2021 12:09 EST Performed On: 05/22/2021 12:08 EST by ZANE CAMPOS crew scheduler Documentation Discharge Date/Time : 05/22/2021 12:08 EST Patient Disposition, General : Discharge Discharge To : Home with ambulatory/outpatient follow-up Accompanied By, Discharge : Other: self Prescriptions Given to Patient : Electronically sent Medications Given to Patient : No Discharge Instructions Reviewed With, Opportunity For Questions Given : Patient Patient Education Completed : Yes Teaching Method : Explanation, Printed materials, Teach back method Teaching Evaluation : Verbalizes understanding ZANE CAMPOS, RN - 05/22/2021 12:08 EST Electronically signed by Frederick, [facility] Conversion Dynamo Repairer Cerner at 10/16/2022 12:43 AM CDT documented in this encounter Plan of Treatment Not on file documented as of this encounter Visit Diagnoses Not on filedocumented in this encounter
--- OUTSIDE RECORDS SUMMARY | 2025-04-10 09:52 | XMS_ITS | Referral Summary ---
Author Organization [employer] ([place], [place], [place], [place]) Address [address] [place] [address] Care Team Providers Care Process Development Engineer Name Role Phone Unavailable Primary Care Provider [...] HEME POLYPEP ORAL) Take by mouth. Active yxnax-nd-7-dha-e hs-mwtlaib-kav (krill oil) 1,663-032-91-80 mg Cap Take 1 tablet by mouth [...] Active Active Problems No known active problems Social History Tobacco Use Types Packs/Day Years [...] Date Urban rded Speak language other than Yi at home Not on file 07/17/2023 Want [...] 04/30/2022 10:16 AM EDT Plan of Treatment Not on file Goals Goal Patient Goal Type Associated Problems Recent Progress Patient-Stated? Author Increase physical activity Lifestyle Rabia Key, RN Note: High BMI Intervention and follow up (physical activity) Insurance [facility] [employer] ACCESS O [facility] PL[facility]
--- OUTSIDE RECORDS SUMMARY | 2025-04-10 09:52 | XMS_ITS | Encounter Summary ---
Author Organization [employer] ([place], [place], [place], [place]) Address [address] [place] [address] Care Team Providers Care Account Analyst Name Role Phone Unavailable Primary Care Provider Unavailabl e Encounter Details Date Type Department Care Team (Late st Contact Info) Description 05/22/2021 Transcribed Document [facility] Family Medicine [address] [place] [address] ProviderHope MD [address] [place], [place] [address] Social History Tobacco Use Types Packs/Day Years Used Date Smoking Tobacco: Never Assessed Comments Unknown Sex and Gender Information Value Date Recorded Sex Assigned at Female 12/24/2021 3:04 PM CDT Legal Sex Female 3:04 PM CDT Gender Identity Female 12/24/2021 3:04 PM CDT Sexual Orientation Not on file documented as of this encounter Miscellaneous Notes * Cerner Conversion Note - Hope ProviderMD - 05/22/2021 12:07 PM CURB WORKER Patient Education Materials Follows: Fall Prevention in the Home, Adult Falls can cause injuries and can affect people from all age groups. There are many simple things that you can do to make your home safe and to help prevent falls. Ask for help when making these changes, if needed. What actions can I take to prevent falls? General instructions ??? Use good lighting in all rooms. Replace any light bulbs that burn out. ??? Turn on lights if it is dark. Use night-lights. ??? Place frequently used items in exmk-db-cgnnx places. Lower the shelves around your home if necessary. ??? Set up furniture so that there are clear paths around it. Avoid moving your furniture around. ??? Remove throw rugs and other tripping hazards from the floor. ??? Avoid walking on wet floors. ??? Fix any uneven floor surfaces. ??? Add color or contrast paint or tape to grab bars and handrails in your home. Place contrasting color strips on the first and last steps of stairways. ??? When you use a stepladder, make sure that it is completely opened and that the sides are firmly locked. Have someone hold the ladder while you are using it. Do not climb a closed stepladder. ??? Be aware of any and all pets. What can I do in the bathroom? Keep the floor dry. Immediately clean up any water that spills onto the floor. ??? Remove soap buildup in the tub or shower on a regular basis. ??? Use non-skid mats or decals on the floor of the tub or shower. ??? Attach bath mats securely with double-sided, non-slip rug tape. ??? If you need to sit down while you are in the shower, use a plastic, non-slip stool. ??? Install grab bars by the toilet and in the tub and shower. Do not use towel bars as grab bars. What can I do in the bedroom? Make sure that a bedside light is easy to reach. ??? Do not use oversized bedding that drapes onto the floor. ??? Have a firm chair that has side arms to use for getting dressed. What can I do in the kitchen? Clean up any spills right away. ??? If you need to reach for something above you, use a sturdy step stool that has a grab bar. ??? Keep electrical cables out of the way. ??? Do not use floor english or wax that makes floors slippery. If you must use wax, make sure that it is non-skid floor wax. What can I do in the stairways? Do not leave any items on the stairs. ??? Make sure that you have a light switch at the top of the stairs and the bottom of the stairs. Have them installed if you do not have them. ??? Make sure that there are handrails on both sides of the stairs. Fix handrails that are broken or loose. Make sure that handrails are as long as the stairways. ??? Install non-slip stair treads on all stairs in your home. ??? Avoid having throw rugs at the top or bottom of stairways, or secure the rugs with carpet tape to prevent them from moving. ??? Choose a carpet design that does not hide the edge of steps on the stairway. ??? Check any carpeting to make sure that it is firmly attached to the stairs. Fix any carpet that is loose or worn. What can I do on the outside of my home? Use bright outdoor lighting. ??? Regularly repair the edges of walkways and driveways and fix any cracks. ??? Remove high doorway thresholds. ??? Trim any shrubbery on the main path into your home. ??? Regularly check that handrails are securely fastened and in good repair. Both sides of any steps should have handrails. ??? Install guardrails along the edges of any raised decks or porches. ??? Clear walkways of debris and clutter, including tools and rocks. ??? Have leaves, snow, and ice cleared regularly. ??? Use sand or salt on walkways during winter months. ??? In the garage, clean up any spills right away, including grease or oil spills. What other actions can I take? Wear closed-toe shoes that fit well and support your feet. Wear shoes that have rubber soles or low heels. ??? Use mobility aids as needed, such as canes, walkers, scooters, and crutches. ??? Review your medicines with your health care provider. Some medicines can cause dizziness or changes in blood pressure, which increase your risk of falling. Talk with your health care provider about other ways that you can decrease your risk of falls. This may include working with a physical therapist or sports athletic trainer to improve your strength, balance, and endurance. Where to find more information ??? Centers for Disease Control and Prevention, [place]: https://www.cdc.gov ??? [place] A[place]: https://um8dphj.fady.nih.gov Contact a health care provider if: ??? You are afraid of falling at home. ??? You feel weak, drowsy, or dizzy at home. ??? You fall at home. Summary ??? There are many simple things that you can do to make your home safe and to help prevent falls. ??? Ways to make your home safe include removing tripping hazards and installing grab bars in the bathroom. ??? Ask for help when making these changes in your home. This information is not intended to replace advice given to you by your health care provider. Make sure you discuss any questions you have with your health care provider. Document Revised: 05/28/2018 Document Reviewed: 01/28/2018 [employer] Patient Education ? 2020 [employer] documented in this encounter Plan of Treatment Not on file documented as of this encounter Visit Diagnoses Not on filedocumented in this encounter
--- OUTSIDE RECORDS SUMMARY | 2025-04-10 09:53 | XMS_ITS | Clinical Summary ---
Author Organization [facility] Address [address] [place] [address] Care Team Providers Care Bronc Buster Name Role Phone Shonna Beckwith MD Unavailable [...] Tdap) 05/09/2021 05/09/2011 UKY-Depression Screening 05/20/2022 05/20/2021 [id number] Vaccine ( - season) 2025 03/21/2021, 09/20/2020, [...] this topic Medical Devices Implanted Type Area Training And Development Coordinator Device Identifier Shelf Expiration Date Model / Serial / Lot Chg Shell R3 3 Hole Acet 50mm - [id number] Implanted:Qty: 1 on 09/14/2023 by Chris Cox MD at [facility] Implant Right: Hip [employer]-[id number] 06/04/2033 [id number] / / [id number] Chg Screw Ref Spher Head 35mm - [id number] Implanted:Qty: 1 on 09/14/2023 by Chris Cox MD at [facility] Implant Right: Hip [employer]-[id number] 02/24/2033 [id number] / / [id number] Chg Screw Ref Spher Head 25mm - [id number] Implanted:Qty: 1 on 09/14/2023 by Chris Cox MD at [facility] Implant Right: Hip [employer]-[id number] 02/10/2033 [id number] / / [id number] Liner Or3o Dual Mbility 38 50 - [id number] Implanted:Qty: 1 on 09/14/2023 by Chris Cox MD at [facility] Implant Right: Hip [employer]-[id number] 04/04/2033 [id number] / / [id number] Polarstem Cementless Lat Tiha - [id number] Implanted:Qty: 1 on 09/14/2023 by Chris Cox MD at [facility] Implant Right: Hip [employer]-[id number] 12/18/2028 [id number] / / [id number] Chg Head Oxinium Fem 06/11 28m - [id number] Implanted:Qty: 1 on 09/14/2023 by Chris Cox MD at [facility] Implant Right: Hip [employer]-[id number] 12/21/2032 [id number] / / [id number] Liner Or3o Dual Mbility Xlpe 28/38 - [id number] Implanted:Qty: 1 on 09/14/2023 by Chris Cox MD at [facility] Implant Right: Hip [employer]-[id number] 04/23/2033 [id number] / / [id number] Insurance MEDICAID [employer] MEDICARE Advance Directives * Full Code (Latest Code Status on File) Date Activated Date Inactivated Comments 09/14/2023 9:05 AM 09/14/2023 5:09 PM Question Answer Comments Patient has decision-making capacity? Yes Care Teams Bronc Buster Relationship Specialty Start Date End Date Jovany Slaughter MD [address] [place] [address] PCP - General Family Medicine 01/27/23 Shonna Beckwith MD [address] [place] [address] Consulting Physician Neurology 11/19/21
--- OUTSIDE RECORDS SUMMARY | 2025-04-10 09:53 | XMS_ITS | Data Portability ---
Author Organization [facility] JANA Lee [place] CLOSED Address [address] [facility] [address] [place] [address] Care Team Providers Care [employer] Teacher Name Role Phone NAHOMI ALMAZAN Primary Care Provider Assessment No assessment recorded. Plan of Treatment Reminders Order Date Submit Date Provider Last Modified By Organization Details Last Modified Time Details Appointments None recorded. Lab None recorded. 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 Hand-based thumb spica splint with instruction s to wear this full-time, she can remove it to wash her hand. Instruct in home exercise program for unaffected joints while wearing the splint. 2021 022 jake Orellana OT, [facility] [place], [address], 13:10:20 Procedures None recorded. Surgeries None recorded. Imaging None recorded. Medication Orders None recorded. Patient TargetsNo targets recorded. Patient Instructions Encounter Date Encounter Id Patient Instructions Last Modified By Organization Details Last Modified Time 04/18/2022 [id number] Arthritis Thumb-LC [email or web address] Not available 04/18/2022 11:05:16 04/18/2022 [id number] Routine post-op care and restrictions are discussed with the patient, questions answered. Follow-up in 4 weeks, sooner, prn. Therapy for hand-based thumb spica splint with instructions to wear this full-time. jake Not available 04/18/2022 13:09:35 Reason for Referral Status post left thumb CMC a rthroplasty with FCR ligament reconstruction. Hand- based thumb spica splint with instructions to wear this full-time, she can remove it to wash her hand. Instruct in home exercise program for unaffected joints while wearing the splint. Referring Physician: Nahomi Victor, Orthopaedic Surgery - Hand, Encounter Date: 04/18/2022 Results Created Date Observation Date Name Description Value Unit Range Abnormal Flag Note LastModifiedBy Organization Detail LastModifiedTime 04/18/20 22 04/18/2022 XR, wrist , 3 or more view [facility] [address] [address] Patitim t Name: SARAH NICHOLE Patitim t : 1969 Patitim t Orderi ng Provid er: LOGAN ATWOOD EXAM DATE: 2021 EXAM: XR LT WRIST COMPLE TE HISTOR Y: Pain. Surger y follow -up COMPAR J CARLOS: 022 FINDIN GS: Interv al remova l of metall ic compon ents to the base of the first metaca rpal. Interv al resect ion of the trapez ium. No compli cation . No acute fractu re noted IMPRES PREMA: 1. Status post left first carpom etacar pal arthro plasty with hardwa re remova l. No compli cation s noted Interp reted By: Stephen Brody MD Electr onical ly Signed By: Stephen Brody MD on 2021 10:13 AM jake [facility] [place] [address] , [place], [address], 04/18/2022 10:34:29 Result Notes Documentation Provider Name and Address Organization Details Recorded Time Xr, Wrist, 3 Or More View : [facility] [address] [place] [address] Patient Name: SARAH NEELY Patient : 1970 Patient Ordering Provider: NAHOMI VICTOR EXAM DATE: 04/18/2022 EXAM: XR LT WRIST COMPLETE HISTORY: Pain. Surgery follow-up COMPARISON: 09/11/2021 FINDINGS: Interval removal of metallic components to the base of the first metacarpal. Interval resection of the trapezium. No complication. No acute fracture noted IMPRESSION: 1. Status post left first carpometacarpal arthroplasty with hardware removal. No complications noted Interpreted By: Stephen Brody MD MI VICTOR PA-C [address] [place], [address], [facility] 04/18/2022 10:34:29 Problems No Known Problems Procedures Surgical History Date Name Laterality Status Provider Name and Address Organization Details Recorded Time 04/18/20 Orthotic, HFO, Static Custom completed MARICRUZ ORELLANA, OTR/L, CHT [address] [place], [address], [facility] 04/18/2022 11:04:46 04/08/20 Op Note completed BRAD CLEARY MD [address] [place], [address], [facility] 04/08/2022 12:12:45 04/08/20 procedure on wrist completed [facility] 04/18/2022 09:32:00 11/12/19 22 Orthotic, WHFO, Static Custom completed ROBBIE AGUERO JR, OTR/L, CHT [address] [place] [address], [address], [facility] 11/11/2021 09:20:16 02/23/20 20 Unlisted px foot/toes completed Nah[facility] 03/07/2020 11:41:13 08/18/19 20 procedure on foot completed Nah[facility] 08/31/2019 12:02:40 Shoulder joint surgery completed Nah[facility] 07/27/2019 13:38:15 Removal of tonsils completed Logan riley [facility] 07/27/2019 13:38:25 Appendectomy completed Nah[facility] 07/27/2019 13:38:29 lung excision completed Nahomi Armando [facility] 07/27/2019 13:38:42 procedure on sternum completed Nahomi [facility] 07/27/2019 13:40:00 cholecystectomy completed Nahomi Roberts [facility] 07/27/2019 13:40:19 Imaging Results None recorded. Procedure Notes None recorded. Medical Equipment None Reported. Allergies Allergen ID Allergen Name Allergen Category Reaction Reaction Severity Criticality Documentation Date Start Date Code Code System Note Provider Name and Address Organization Details Recorded Time 953017 Substance with sulfonami de structure and antibacte rial mechanism of action (substanc e) medicatio n Not available Not available Not available 05/22/20162011 04149 8003 SNOMED Comme nt: Creat ed By: Narcisa alvarenga Date: 2011 1:57: 15 PM; Not Available [facility] 6 13:41:11 792644 amoxicill in medicatio n Not available Not available Not available 05/12/2019 723 RxNorm [facility] Trey Sena [facility] 9 09:54:21 305755 carvedilo l medicatio n Not available Not available Not available 05/12/2019 54809 RxNorm Trey Trey Sena [facility] 9 09:54:32 [id number] hydrocodo ne Not available Not available Not available Not available 05/12/2019 5489 RxNorm [facility] Trey Sena [facility] 9 09:54:38 833603 lisinopri l medicatio n Not available Not available Not available 05/12/2019 68811 RxNorm [facility] Trey Sena [facility] 9 09:54:44 [id number] acetamino phen / oxycodone medicatio n itching severe Not available 02/24/20202019 26638 3 RxNorm Oxyco done Nahomi Armando [facility] 0 09:30:13 Medications Name Sig Start Date Stop Date Status Note LastModified by Organization Details LastModified Time ondansetr on hydrochlo ride 8 mg tabs 07/27 completed Not Available Not Available Not Available oseltamiv ir phosphate 75 mg caps 07/27 completed Not Available Not Available Not Available cefdinir 300 mg caps 07/27 completed Not Available Not Available Not Available duloxetin e hydrochlo ride 20 mg cpep 02/19 completed Not Available Not Available Not Available methylpre dnisolone dose pack 4 mg tbpk 07/27 completed Not Available Not Available Not Available erythromy kayli 5 mg/gm oint 07/27 completed Not Available Not Available Not Available oxycodone /acetamin ophen 5-325 mg tabs 10/04 completed Not Available Not Available Not Available nitrofura ntoin monohydra te/macroc rystals 100 mg caps 07/27 completed Not Available Not Available Not Available desmopres sin acetate 0.1 mg tabs 07/27 completed Not Available Not Available Not Available ondansetr on hydrochlo ride 4 mg tabs prn 09/11 completed Not Available Not Available Not Available losartan potassium 50 mg tabs 07/27 completed Not Available Not Available Not Available cephalexi n 500 mg caps 07/27 completed Not Available Not Available Not Available fluoxetin e hcl 20 mg caps 07/27 completed Not Available Not Available Not Available gabapenti n 100 mg caps 07/27 completed Not Available Not Available Not Available trazodone hydrochlo ride 50 mg tabs 02/19 completed Not Available Not Available Not Available doxycycli ne hyclate 100 mg caps 07/27 completed Not Available Not Available Not Available azithromy kayli 500 mg tabs 07/27 completed Not Available Not Available Not Available amitripty line hydrochlo ride 25 mg tabs 07/27 completed Not Available Not Available Not Available azithromy kayli 250 mg tabs 07/27 completed Not Available Not Available Not Available valacyclo vir hcl 1 gm tabs 07/27 completed Not Available Not Available Not Available losartan 50 mg tablet TAKE 1 TABLET BY MOUTH ONCE DAILY active Not Available Not Available No t Available cyclobenz aprine 10 mg tablet active Not Available Not Available No t Available hydrocort isone 0.5 % topical cream active Not Available Not Available Not Available prednison e 10 mg tablet 4 TABLETS DAILY X 3 DAYS, THEN 2 TABLETS DAILY X 3 DAYS, THEN 1 TABLET DAILY X 3 DAYS. DAILY ORALLY 9 DAYS 09/11 completed Not Available Not Available Not Available nitrofura ntoin macrocrys estuardo 50 mg capsule active Not Available Not Available Not Available gabapenti n 600 mg tablet TAKE 1 TABLET BY MOUTH TWICE DAILY 09/11 completed Not Available Not Available Not Available doxycycli ne hyclate 100 mg capsule 09/11 completed Not Available Not Available Not Available cefuroxim e axetil 250 mg tablet active Not Available Not Available Not Available trazodone 50 mg tablet Take 1 tablet every day by oral route. active Not Available Not Available No t Available cetirizin e 10 mg tablet TAKE 1 TABLET BY MOUTH ONCE DAILY active Not Available Not Available No t Available azithromy kayli 250 mg tablet TAKE 2 TABLETS FIRST DOSE. THEN TAKE ONE TABLET ONCE DAILY TILL ALL TAKEN. 02/17 completed strep throat Not Available Not Available Not Available valacyclo vir 1 gram tablet 05/12 completed Not Available Not Available Not Available hydrocodo ne 5 mg-acetam inophen 325 mg tablet TAKE 1 TAB PO Q 4-6 HRS PRN FOR SEVERE POST SURGICAL PAIN 11/11 completed Not Available Not Available Not Available ondansetr on HCl 8 mg tablet 05/12 completed Not Available Not Available Not Available meloxicam 15 mg tablet TAKE 1 TABLET BY MOUTH ONCE DAILY 01/24 completed Not Available Not Available Not Available phenazopy ridine 200 mg tablet TALE 1 TABLET AFTER MEALS ORALLY THREE TIMES A DAY FOR 3 DAY(S) active Not Available Not Available No t Available ondansetr on HCl 4 mg tablet 05/12 completed Not Available Not Available Not Available pseudoeph edrine ER 120 mg tablet,ex tended release active Not Available Not Available Not Available acetamino phen 300 mg-codein e 30 mg tablet TAKE 1 TABLET BY MOUTH EVERY 6 HOURS NEEDED 09/11 completed Not Available Not Available Not Available levofloxa kayli 250 mg tablet TAKE 2 TABLETS BY MOUTH ONCE DAILY FOR 5 DAYS active Not Available Not Available No t Available amlodipin e 5 mg tablet active Not Available Not Available Not Available ciproflox acin 500 mg tablet TAKE 1 TABLET BY MOUTH EVERY 12 HOURS FOR 10 DAYS active Not Available Not Available No t Available hydrocodo ne 10 mg-acetam inophen 325 mg tablet TAKE 1/2-1 TABLET EVERY 4-6 HOURS FOR SEVERE POST SURGICAL PAIN active Not Available Not Available No t Available tramadol 50 mg tablet Take 1 tablet every 6 hours by oral route as needed for 7 days. 09/11 completed Not Available Not Available Not Available carvedilo l 3.125 mg tablet 05/12 completed Not Available Not Available Not Available meloxicam 7.5 mg tablet TAKE 1 TABLE PO QD WITH FOOD REGARDLE SS OF PAIN LEVEL FOR 1 WEEK. THEN TAKE 1 TABLET PO QD ONLY PRN FOR PAIN RELIEF THEREAFT ER active Not Available Not Available No t Available oxycodone -acetamin ophen 5 mg-325 mg tablet TAKE 1 TABLET BY MOUTH EVERY 6 HOURS NEEDED FOR 7 DAYS 06/06 completed Not Available Not Available Not Available amitripty line 25 mg tablet 05/12 completed Not Available Not Available Not Available gabapenti n 800 mg tablet x2 day 01/24 completed Not Available Not Available Not Available ciproflox acin 0.3 % eye drops 2 DROPS INTO AFFECTED EYE EVERY 4 HRS 09/11 completed Not Available Not Available Not Available dexametha sone 1 mg tablet 05/12 completed Not Available Not Available Not Available amitripty line 10 mg tablet TAKE 2 TABLETS AT BEDTIME ONCE A DAY (THIS IS A DOSAGE CHANGE) 09/11 completed Not Available Not Available Not Available amlodipin e 10 mg tablet active Not Available Not Available Not Available cephalexi n 500 mg capsule TAKE 1 CAPSULE BY MOUTH TWICE DAILY FOR 10 DAYS active Not Available Not Available No t Available erythromy kayli 5 mg/gram (0.5 %) eye ointment APPLY TO THE LOWER EYELID OF AFFECTED EYE FOUR TIMES DAILY active Not Available Not Available No t Available oseltamiv ir 75 mg capsule TAKE 1 CAPSULE BY MOUTH TWICE DAILY FOR 5 DAYS active Not Available Not Available No t Available nitrofura ntoin macrocrys estuardo 100 mg capsule 12/01 completed Not Available Not Available Not Available promethaz ine 25 mg tablet TAKE 1 TABLET BY MOUTH EVERY FOUR HOURS NEEDED active Not Available Not Available No t Available losartan 25 mg tablet TAKE 1 TABLET BY MOUTH EVERY DAY 09/11 completed Not Available Not Available Not Available docusate sodium 100 mg capsule TAKE ONE CAPSULE BY MOUTH ONCE DAILY 09/11 completed Not Available Not Available Not Available gabapenti n 300 mg capsule Take 1 capsule 3 times a day by oral route at bedtime for 30 days. 09/11 completed Not Available Not Available Not Available sertralin e 25 mg tablet TAKE 1 TABLET BY MOUTH EVERY DAY active Not Available Not Available No t Available Advil 200 mg tablet Take 1 tablet every 6 hours by oral route as needed. 05/03 completed Not Available Not Available Not Available diclofena c sodium 75 mg tablet,de layed release TAKE 1 TABLET BY MOUTH TWICE DAILY 09/11 completed Not Available Not Available Not Available monteluka st 10 mg tablet TAKE 1 TABLET BY MOUTH ONCE DAILY active Not Available Not Available No t Available gabapenti n 100 mg capsule TAKE 1 CAPSULE PO QHS FOR 1 WEEK active Not Available Not Available No t Available Wellbutri n 100 mg tablet 05/12 completed Medicati on Descript ion: bupropio n; Route:or al; refills: 0 Not Available Not Available Not Available polyethyl gretchen glycol 3350 17 gram/dose oral powder 1 SCOOP ORALLY ONCE A DAY 30 DAYS 09/11 completed Not Available Not Available Not Available estradiol 0.01% (0.1 mg/gram) vaginal cream active Not Available Not Available Not Available methylpre dnisolone 4 mg tablets in a dose pack 09/11 completed Not Available Not Available Not Available propranol ol 20 mg tablet TAKE 2 TABLETS BY MOUTH ONCE DAILY active Not Available Not Available No t Available ondansetr on 4 mg disintegr ating tablet DISSOLVE 1 TABLET BY MOUTH EVERY SIX HOURS NEEDED FOR NAUSEA active Not Available Not Available No t Available cefdinir 300 mg capsule TAKE 1 CAPSULE BY MOUTH TWICE DAILY active Not Available Not Available No t Available fluoxetin e 20 mg capsule TAKE 3 CAPSULES BY MOUTH EVERY DAY 09/11 completed Not Available Not Available Not Available sertralin e 50 mg tablet active Not Available Not Available Not Available naproxen 500 mg tablet TAKE 1 TABLET BY MOUTH TWICE A DAY DIRECTED 01/24 completed Not Available Not Available Not Available doxazosin 2 mg tablet TAKE 1 TABLET BY MOUTH ONCE DAILY active Not Available Not Available No t Available desmopres sin 0.1 mg tablet Take 1 tablet every day by oral route. 09/11 completed Not Available Not Available Not Available azithromy kayli 500 mg tablet 05/12 completed Not Available Not Available Not Available cyclobenz aprine 5 mg tablet TAKE 1 TABLET BY MOUTH AT BEDTIME NEEDED 01/24 completed Not Available Not Available Not Available rosuvasta tin 10 mg tablet 09/11 completed Not Available Not Available Not Available nitrofura ntoin monohydra te/macroc rystals 100 mg capsule TAKE 1 CAPSULE AT BEDTIME WITH FOOD OR MILK ORALLY ONCE A DAY FOR 14 DAY(S) active Not Available Not Available No t Available duloxetin e 20 mg capsule,d elayed release x3 per day active Not Available Not Available No t Available duloxetin e 30 mg capsule,d elayed release 05/12 completed Not Available Not Available Not Available duloxetin e 60 mg capsule,d elayed release active Not Available Not Available Not Available Mucinex DM 30 mg-600 mg tablet,ex tended release 12 hr TAKE 1 TABLET BY MOUTH EVERY 12 HOURS NEEDED FOR COUGH AND CONGESTI ON FOR 7 DAYS 02/19 completed Not Available Not Available Not Available pregabali n 100 mg capsule Take 1 capsule twice a day by oral route. active Not Available Not Available No t Available fluoxetin e 60mg 1 daily 02/19 completed Not Available Not Available Not Available trazodone prn 07/27 completed Not Available Not Available Not Available gabapenti n 300mg 1 daily 02/19 completed Not Available Not Available Not Available ProAir HFA 90 mcg/actua tion aerosol inhaler 2 PUFFS FOUR TIMES A DAY WHILE AWAKE X 2 DAYS THEN 1-2 PUFFS INHALATI ON EVERY 4-6 HRS NEEDED 10 DAYS 09/11 completed Not Available Not Available Not Available Januvia 100 mg tablet 02/19 completed Not Available Not Available Not Available Fluzone Quad (PF) 60 mcg (15 mcg x 4)/0.5 mL IM syringe PHARMACI ST ADMINIST ERED IMMUNIZA TION ADMINIST ERED AT TIME OF DISPENSI NG 09/11 completed Not Available Not Available Not Available Vitals Date Recorded Body height Body mass index (BMI) Body weight Provider Name and Address Organization Details Last Updated DateTime 07/09/2022 175.26 cm 25.4 kg/m2 68469.89 g [facility] 07/09/2022 13:34:48 Date Recorded Body height Body mass index (BMI) Body weight Pain severity - 0-10 verbal numeric rating [Score] - Reported Provider Name and Address Organization Details Last Updated DateTime 04/18/2022 175.26 cm 25.4 kg/m2 73140.89 g Noemi Roberts [facility] 04/18/2022 09:36:16 Date Recorded Body height Body mass index (BMI) Body weight Provider Name and Address Organization Details Last Updated DateTime 05/19/2022 175.26 cm 25.4 kg/m2 55821.89 g Stephen Brody [facility] 05/19/2022 08:39:58 Social History Question Answer Notes LastModified by Organizat ion Details LastModified Time Tobacco Smoking Status Former Smoker quit 15 years ago 2003 Trey Sena [facility] 05/12/2019 09:59:16 Accident Related Injury Yes [email or web address] Information not available 07/27/2019 What Is Your Level Of Caffeine Consumption? Moderate [email or web address] Information not available 07/27/2019 How Much Tobacco Do You Chew? None Information not available 05/12/2019 Which Of Your Hands Is Dominant? Right [email or web address] Information not available 07/27/2019 Rate The Severity Of Your Symptoms: (0-10 With 0=none And 10=worst Possible) 4 [email or web address] Information not available 04/04/2020 Date Of Injury: 2015 [email or web address] Information not available 07/27/2019 Have You Been Treated For This Problem Before? Yes Information not available 07/27/2019 How Long Have You Had These Symptoms? 2016 [email or web address] Information not available 07/27/2019 Will This Be Filed As Workers' Compensation? No [email or web address] Information not available 07/27/2019 Marital Status Information not available 07/27/2019 What Was The Date Of Your Most Recent Tobacco Screening? 07/27/2019 [email or web address] Information not available 07/27/2019 How Much Tobacco Do You Smoke? 0.5 PPD Information not available 05/12/2019 How Many Years Have You Smoked Tobacco? 10 Information not available 05/12/2019 Work Related Injury? No Information not available 07/27/2019 Sex: Unknown Functional Status Question Answer Note LastModified by Organizat ion Details LastModified Time Do you use any illicit or recreational drugs? No [email or web address] Information not available 07/27/2019 What is your level of alcohol consumption? Occasional [email or web address] Information not available 07/27/2019 Do you or have you ever used smokeless tobacco? Never used smokeless tobacco Information not available 05/12/2019 Are you currently employed? 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 [email or web address] Information not available 07/27/2019 Do you or have you ever used e-cigarettes or vape? Never used electronic cigarettes Information not available 05/12/2019 Mental Status None recorded. Family History Relationship Description Onset Age of this Age Resolved Age Notes LastModified by Organization Details LastModified Time Mother Arthritis Not available 05/12/2019 09:58:51 Medical History Condition Response Allergies/Hayfever Y Anxiety/Depression Y Other Y Gout N Thyroid Disease N Kidney Stones N Heart Conditions N Hernia N Migraines N Glaucoma N COPD N Pneumonia N Skin Problems N Immune System Disorder N Anesthesia Complications N Heart Attack ([place]) N Mental Illness N Neurological Problems Y Diabetes Y Rheumatic Fever N Bleeding Disorder N Arthritis Y Seizures/Epilepsy N Blood Clot N Tuberculosis N Genetic Disorder N AIDS/HIV N Cancer N Stroke N Asthma N Blood Thinners N Alcohol Overuse/Alcohol Abuse N Sleep Apnea N High Cholesterol N Liver Disease N Included as Review of Systems Y Hypertension Y Osteoporosis N Kidney Disease Y Gynecological HistoryNo gynecological history recorded. Obstetrics History GPAL:G 0 P 0 0 0 0 Immunizations Vaccine Type Date Status Note Provider Nam e and Address Organization Details Recorded Time Influenza, split virus, quadrivalent, preservative 9 completed [facility] 05/12/2019 09:58:33 Past Encounters Encounter ID Performer Location Encounter Start Date Encounter Closed Date Diagnosis/Indication Diagnosis SNOMED-CT Code Diagnosis ICD10 Code Diagnosis IMO Codes Diagnosis Note [id number] WAQAS ANDERS MD [facility] [address] [place] [address] 05/12/2019 09:29:10 05/12/2019 10:33:05 Primary fibromyalgia syndrome [id number] M79.7 A very pleasant 48-year-ol d female seen today for constellat ion of symptoms to include, chronic widespread pains, chronic malaise and fatigue, poor nonrestora tive sleep, forgetfuln ess and memory fog, numbness and tingling and intermitte nt low-grade fevers. Her clinical examinatio n is consistent with fibromyalg ia syndrome. I did not appreciate any clinical evidence of inflammato ry joint disease or inflammato ry muscle disease. I discussed my clinical impression with the patient and educated her about fibromyalg ia syndrome. It is explained to the patient that fibromyalg ia is not an autoimmune disease process and in fact is a central sensitizat ion pain syndrome. There are several factors which could aggravate patient's fibromyalg ia symptoms some of which include poor quality sleep as well as underlying depression and stress. I have suggested her to consider: #1, aquatic therapy program twice a week for at least 8 weeks. #2, cognitive behavioral therapy. #3, evaluation for obstructiv e sleep apnea with a sleep study. She will consult her primary care physician to arrange for sleep study. #4, calorie restrictio n not more than 1500 rk every 24 hours. #5, relaxation exercises such as camelia chi or yoga. in terms of medication s, their role in fibromyalg ia is only as an adjunct to the nonpharmac ologic therapy. She can maintain the current dose of fluoxetine and can consider increasing the dose of gabapentin to 300 mg at bedtime. I will discourage the use of narcotic pain medication s as they do not have any role in Fibromyalg ia syndrome. Forward recommenda tions to her family physician. She is comfortabl e with the discussion and can see me in a year or as needed. 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 [id number] M19.072 navicular medial cuneiform left [id number] SHAILA CARLTON MD SURGERY SCHEDULE [address] [place] [address] 08/18/2019 07:26:47 08/18/2019 07:32:52 Postoperative pain [id number] G89.18 [id number] SHAILA CARLTON MD ORTHOPEDI CS [facility] [address] [place] [address] 08/19/2019 10:24:15 08/19/2019 11:37:46 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 [id number] M19.072 navicular medial cuneiform left [id number] SHAILA CARLTON MD [facility] [address] [place] [address] 08/31/2019 10:44:19 08/31/2019 13:55:30 Osteoarthritis of midfoot [id number] M19.072 Left foot navicular- medial cuneiform arthrodesi s [id number] SHAILA CARLTON MD [facility] [address] [place] [address] 10/05/2019 09:38:44 10/05/2019 11:54:16 Osteoarthritis of midfoot 457323641 M19.072 Left foot navicular- medial cuneiform arthrodesi s [id number] SHAILA CARLTON MD [facility] [address] [place] [address] 11/02/2019 10:39:22 11/02/2019 11:08:35 Osteoarthritis of midfoot [id number] M19.072 Left foot navicular- medial cuneiform arthrodesi s [id number] SHAILA CARLTON MD [facility] [address] [place] [address] 12/02/2019 10:54:06 12/02/2019 12:08:37 Osteoarthritis of midfoot [id number] M19.072 Left foot navicular- medial cuneiform arthrodesi s Peroneal tendinitis 5320 8009 M76.72 Pain of le ft ankle joint [id number] M25.813 [id number] SHAILA CARLTON MD [facility] [address] [place] [address] 12/12/2019 14:26:19 12/12/2019 15:16:41 Tibialis anterior tendinitis [id number] M76.527 [id number] SHAILA CARLTON MD [facility] [address] [place] [address] 01/09/2020 10:17:02 01/09/2020 11:20:50 Tibialis anterior tendinitis [id number] M76.241 [id number] SHAILA CARLTON MD [facility] [address] [place] [address] 02/20/2020 11:45:37 02/20/2020 14:16:29 Osteoarthritis of midfoot [id number] M19.072 Left foot navicular- medial cuneiform arthrodesi s nonunion [id number] SHAILA CARLTON MD SURGERY SCHEDULE [address] [place] [address] 02/23/2020 09:14:43 02/23/2020 09:19:05 Postoperative pain [id number] G89.18 [id number] SHAILA CARLTON MD [facility] [address] [place] [address] 03/07/2020 11:23:45 03/07/2020 12:09:59 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 [id number] M19.072 navicular medial cuneiform left [id number] SHAILA CARLTON MD [facility] [address] [place] [address] 04/04/2020 10:52:03 04/04/2020 12:00:12 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 I did not appreciate any clinical evidence of inflammato ry joint disease or inflammato ry muscle disease. I discussed my clinical impression with the patient and educated her about fibromyalg ia syndrome. It is explained to the patient that fibromyalg ia is not an autoimmune disease process and in fact is a central sensitizat ion pain syndrome. There are several factors which could aggravate patient's fibromyalg ia symptoms some of which include poor quality sleep as well as underlying depression and stress. I have suggested her to consider: maintain calorie restrictio n not more than 1500 rk every 24 hours. try to participat e in relaxation exercises such as camelia chi or yoga. in terms of medication s, continue gabapentin 300 mg at bedtime. Prescripti on given as her endocrinol ogist used to prescribe medication is no longer in practice. I will discourage the use of narcotic pain medication s as they do not have any role in Fibromyalg ia syndrome. follow-up 3 months Osteoarthr osis of the carpometacarpal joint of the thumb [id number] M18.9 degenerati ve process the first CMC joints. Suggested use of thumb spica brace. X-rays obtained. Discontinu e naproxen. Trial of meloxicam. [id number] SHAILA CARLTON MD [facility] [address] [place] [address] 06/13/2020 09:38:15 06/13/2020 10:48:28 Synovitis/tenosynovit is - hand [id number] M65.841 R>L Tibialis a nterior tendinitis 223175703 M76.740 [id number] BRAD CLEARY MD [facility]THOPEDI [facility] [address] [address] 09/11/2021 13:23:50 09/11/2021 15:01:25 Osteoarthrosis of the carpometacarpal joint of the thumb 72167674 M18.9 7 months status post right thumb CMC arthroplas ty, with skeletal dynamics prosthesis with continued pain and probable instabilit y. Recommend revision to basal joint arthroplas ty [id number] BRAD CLEARY MD SURGERY SCHEDULE [address] [place] [address] 10/29/2021 08:45:05 10/29/2021 08:45:31 [id number] BRAD CLEARY MD [facility] [address] [place] [address] 11/11/2021 07:42:49 11/11/2021 08:24:39 Osteoarthrosis of the carpometacarpal joint of the thumb 30762487 M18.9 2 weeks status post revision right thumb CMC arthroplas ty with excision of skeletal dynamics prosthesis and revision suspension plasty, full-time immobiliza tion with thumb metacarpal extended and MP joint slightly flexed, follow-up 4 weeks to begin hand therapy [id number] ROBBIE AGUERO JR, OTR/L, CHT PHYSICAL THERAPY / HAND THERAPY [facility] [address] [place] [address] 11/11/2021 08:42:47 11/11/2021 10:20:49 Osteoarthrosis of the carpometacarpal joint of the thumb 40222455 M18.9 [id number] BRAD CLEARY MD [facility] [address] [place] [address] 12/11/2021 14:03:20 12/11/2021 14:29:58 Osteoarthrosis of the carpometacarpal joint of the thumb 94060514 M18.9 6 weeks status post revision right thumb CMC arthroplas ty with excision of skeletal dynamics prosthesis and revision suspension plasty, doing quite well excellent position, only slight MP hyperexten prema, was considerin g hand therapy however at this point it appears that she can progress use as tolerated, follow-up 6 weeks. [id number] BRAD CLEARY MD [facility] [address] [place] [address] 01/24/2022 09:12:27 01/24/2022 09:48:14 Osteoarthrosis of the carpometacarpal joint of the thumb 84612416 M18.9 Doing well, full use. 12 weeks status post revision right thumb CMC arthroplas ty with removal of skeletal dynamics implant Recommend left basal joint arthroplas ty with FCR ligament reconstruc tion [id number] BRAD CLEARY MD SURGERY SCHEDULE [address] [place] [address] 04/08/2022 08:52:40 04/08/2022 08:53:47 [id number] NAHOMI VICTOR PA-C [facility] [address] [place] [address] 04/18/2022 09:20:33 04/18/2022 10:01:56 Osteoarthrosis of the carpometacarpal joint of the thumb 84912070 M18.9 Doing well status post left thumb CMC arthroplas ty with FCR ligament reconstruc tion, some settling of the thumb metacarpal . [id number] MARICRUZ ORELLANA, OTR/L, CHT PHYSICAL THERAPY / HAND THERAPY [facility] [address] [place] [address] 04/18/2022 10:07:37 04/18/2022 14:32:52 Osteoarthrosis of the carpometacarpal joint of the thumb 15695555 M18.12 CMC Arthroplas ty [id number] BRAD CLEARY MD [facility] [address] [place] [address] 05/19/2022 08:37:46 05/19/2022 09:05:29 Osteoarthrosis of the carpometacarpal joint of the thumb 06055734 M18.9 6 weeks post left thumb CMC arthroplas ty with FCR ligament reconstruc tion, with mild settling of the thumb metacarpal doing well, follow-up 6 weeks [id number] BRAD CLEARY MD [facility] [address] [place] [address] 07/09/2022 13:20:43 07/09/2022 14:10:39 Osteoarthrosis of the carpometacarpal joint of the thumb 77920546 M18.9 12 weeks out and she is doing well symptomati maria luisa, follow-up as needed. Health Concerns Section Related Observation LastModified by Organization Detai ls LastModified Time None Recorded Concern Status LastModified by Organization Details LastModified Time None Recorded Advance Directives Directive None Recorded Payers Insurance Date Sequence Insurance Name Policy Number Policy Tovar Covered Member ID Tovar Member ID Guarantor Name 07/23/2022 2 [facility] [id number] Tamila A Grisel [id number] Tamila A Grisel 07/09/2022 1 [employer] (MEDICARE REPLACEMENT/A DVANTAGE - PPO) Tamila A Grisel [id number] Tamila A Grisel 11/04/2024 PAYMENT PLAN Tamila A Grisel 07/09/2022 2 [employer] - SENIORS CHOICE (SECONDARY TO MEDICARE) Tamila Grisel [id number] Tamila A Grisel 07/09/2022 2 [employer] Tamila A Grisel [id number] Tamila A Grisel 07/09/2022 1 [place] [id number] Tamila Grisel [id number] Tamila A Grisel 11/02/2020 PAYMENT PLAN Tamila A Grisel 07/09/2022 1 [place] [id number] Tamila Grisel [id number] Tamila A Grisel 07/09/2022 1 [place] [facility] - FFS/TRADITION AL Tamila Grisel [id number] Tamila A Grisel 05/13/2022 PAYMENT PLAN Tamila A Grisel 07/09/2022 1 [place] [facility] [facility] - FFS/TRADITION AL Tamilia Grisel [id number] Tamila A Grisel 07/09/2022 1 [place] aSrah Neely [id number] Sarah Estrada Grisel 07/09/2022 1 [place]ANE-[place]: [facility] [employer] PLUS (MEDICARE REPLACEMENT HMO) [id number] Sarah Neely [id number] Sarah Neely Notes Date Note Type Note Provider Name and Address Organization Details Recorded Time 2 text/html The patient is here for a routine scheduled postoperative follow-up visit status post left thumb CMC arthroplasty with FCR ligament reconstruction. She arrives in her postop dressing which is removed for x-ray and exam. She reports very little pain. POST OP GLOBAL VISIT DATE OF SURGERY: 04/08/22 Surgery: Left thumb CMC arthroplastyFCR ligament reconstruction TIME POST SURGERY:10 daysSURGERY:INTERVAL HISTORY: PREOP SYMPTOMSBETTER PAIN LEVEL (VAS)3/10 OVERALL ASSESSMENTIMPROVING NEW SYMPTOMS OR QUESTIONS: OTHER RECENT SURGERIES: EMPLOYMENT STATUS: Disabled NAHOMI VICTOR PA-C [facility] [place], [address], [facility] 04/18/2022 13:10:31 2 text/html POST OP GLOBAL VISIT DATE OF SURGERY: 04/08/22 Surgery: Left thumb CMC arthroplastyFCR ligament reconstruction TIME POST SURGERY:6 WKSSURGERY:INTERVAL HISTORY: PREOP SYMPTOMSBETTER PAIN LEVEL (VAS)3/10 OVERALL ASSESSMENTIMPROVING NEW SYMPTOMS OR QUESTIONS: Mainly soreness at this time. Doing well reportedly OTHER RECENT SURGERIES: EMPLOYMENT STATUS: Disabled BRAD CLEARY MD [facility] [place], [address], [facility] 05/19/2022 08:57:54 3 text/html POST OP GLOBAL VISIT DATE OF SURGERY: 04/08/22 Surgery: Left thumb CMC arthroplastyFCR ligament reconstruction TIME POST SURGERY:12 weeksSURGERY:INTERVAL HISTORY: PREOP SYMPTOMSRESOLVED PAIN LEVEL (VAS)0/10 OVERALL ASSESSMENTIMPROVING NEW SYMPTOMS OR QUESTIONS: No concerns. Pleased with results. OTHER RECENT SURGERIES: EMPLOYMENT STATUS: [place], [address], [facility] 07/09/2022 13:53:56 OBGyn Episode No OBEpisode recorded.
== END 2025-04-07 23:59 ==
LOC: LAB.DROPOF 04-10 09:47
PROVIDERS: PCP Family Medicine; Visit Provider Family Medicine
DX: N39.0 Urinary tract infection, site not specified (principal)
CPT/HCPCS: 87086; 87088; 87186

== ENCOUNTER 2025-06-01 10:34 | Emergency (ER) | payer MEDICARE, SELFPAY ==
[2025-06-01] VITALS (7 sets, daily range): BP systolic 122–143; BP diastolic 89–99; PULSE 65–72; RESP 18; TEMP 36.8; O2SAT 84–98; BMI 26.6
--- NOTE | 2025-06-01 10:41 | ECG_ITS ---
APPROVED REPORT Exam: Resting ECG HR:64 bpm ECG Measurements Heart Rate 64 AXES DC 213 P 67 QRSd 95 QRS 62 QT 377 T 66 QTc 387 Conclusion SINUS RHYTHM WITH FIRST DEGREE AV BLOCK LOW QRS VOLTAGE IN PRECORDIAL LEADS [QRS DEFLECTION < 1.0 mV IN CHEST LEADS] ABNORMAL ECG UNCONFIRMED REPORT Normal sinus rhythm. First-degree AV block. No ST elevation or depression. . QTc within normal limits Electronically signed by : EMILY PABON, 06/02/2025 07:31:10
--- NOTE | 2025-06-01 10:43 | PC.NURSE ---
1039 FSBS 70, given Clements juice
--- NOTE | 2025-06-01 10:59 | XR_ITS ---
FINAL REPORT CLINICAL HISTORY: Syncope, dizziness FINDINGS: SINGLE VIEW CHEST The heart is normal in size. Patient is status post median sternotomy. The lungs are clear. There is no pneumothorax. IMPRESSION: No acute process. Reviewed, Interpreted and Dictated by Tyson Mckeon MD Transcribed by Jimena Gordon Authenticated and [facility]
--- NOTE | 2025-06-01 10:59 | CT_ITS ---
FINAL REPORT TECHNIQUE: Axial CT images were performed through the head. Coronal reformatted images were submitted. This study was performed with techniques to keep radiation doses as low as reasonably achievable (ALARA). Individualized dose reduction techniques using automated exposure control or adjustment of mA and/or kV according to the patient's size were employed. CLINICAL HISTORY: Syncope, dizziness FINDINGS: The ventricles are normal in size. There is no evidence of hemorrhage. There is no mass or edema identified. There is no abnormal extra-axial fluid seen. The sinuses are well aerated. IMPRESSION: No acute intracranial process. Reviewed, Interpreted and Dictated by Tyson Mckeon MD Transcribed by Jimena Gordon Authenticated and . [facility]
--- NOTE | 2025-06-01 10:59 | CT_ITS ---
FINAL REPORT TECHNIQUE: thin section axial CT with and without IV contrast supplemented with multiplanar 3-D reconstruction of the head. This study was performed with techniques to keep radiation doses as low as reasonably achievable, (ALARA)individualized dose reduction techniques using automated exposure control or adjustment of mA and/or kV according to the patient's size were employed. CLINICAL HISTORY: Dizziness, syncope FINDINGS: The cranial circulation is unremarkable. There is no significant stenosis, aneurysm or occlusion. There is a patent right posterior communicating artery. There is early bifurcation of the right MCA. IMPRESSION: No evidence of aneurysm or major branch occlusion. Reviewed, Interpreted and Dictated by Tyson Mckeon MD Transcribed by Jimena Gordon Authenticated and [facility]
--- NOTE | 2025-06-01 10:59 | CT_ITS ---
FINAL REPORT TECHNIQUE: NASCET technique utilized for stenosis evaluation. CLINICAL HISTORY: Syncope, dizziness FINDINGS: The cervical vasculature is well-opacified. There are advanced changes of degenerative disc disease at C5-6, C6-7, and C7-T1. There is reversal of the normal cervical lordosis. The facets are properly aligned. RIGHT CAROTID: No significant stenosis is seen of the cervical common or internal carotid artery. LEFT CAROTID: No significant stenosis seen of the cervical common or internal carotid artery. VERTEBRALS: The vertebral arteries are patent and symmetric. No significant stenosis is present. IMPRESSION: No significant arterial abnormality. Reviewed, Interpreted and Dictated by Tyson Mckeon MD Transcribed by Jimena Gordon Authenticated and [facility]
--- NOTE | 2025-06-01 11:06 | HMH.EDGENADL ---
Discharge Plan Disposition Patient Disposition: Home, Self-Care Prescriptions Prescriptions: New meclizine 25 mg tablet 25 mg PO DAILY Qty: 30 0RF No Action mirabegron [Myrbetriq] 50 mg tablet extended release 24 hr 50 mg PO Patient Comments: TAKE 1 TABLET BY MOUTH ONCE DAILY cetirizine 10 mg tablet 10 mg PO DAILY PRN azelastine 205.5 mcg (0.15 %) spray,non-aerosol 1 spray intranasal BID 90 Days Qty: 30 2RF Rx Instructions: administer into each nostril duloxetine 60 mg capsule,delayed release(DR/EC) See Rx Instructions .ROUTE .COMPLEX Qty: 90 3RF Dose Instruction: Take 1 capsule by mouth once daily Rx Instructions: Take 1 capsule by mouth once daily propranolol 20 mg tablet See Rx Instructions .ROUTE .COMPLEX Qty: 60 3RF Dose Instruction: Take 1 tablet by mouth twice daily Rx Instructions: Take 1 tablet by mouth twice daily trazodone 150 mg tablet 150 mg PO DAILY 90 Days Qty: 90 1RF cyclobenzaprine 10 mg tablet 10 mg PO HS 90 Days Qty: 90 0RF nitrofurantoin monohyd/m-cryst [Macrobid] 100 mg capsule 100 mg PO Q12H Qty: 20 0RF Rx Instructions: must administer with a meal/food fluconazole 150 mg tablet 150 mg PO Q3D Qty: 4 0RF pregabalin 100 mg capsule 100 mg PO TID Qty: 90 2RF sertraline 50 mg tablet 50 mg PO DAILY 90 Days Qty: 90 0RF losartan 50 mg tablet See Rx Instructions .ROUTE .COMPLEX Qty: 180 0RF Dose Instruction: TAKE 2 TABLETS BY MOUTH ONCE DAILY Rx Instructions: TAKE 2 TABLETS BY MOUTH ONCE DAILY amlodipine 10 mg tablet 10 mg PO DAILY Qty: 90 0RF ezetimibe 10 mg tablet 10 mg PO DAILY Qty: 90 0RF montelukast 10 mg tablet 10 mg PO DAILY Qty: 90 0RF Referrals Follow up/Referrals: [facility] Therapy [Provider Group, Physical Therapy] - See instructions Niles Washburn MD [Physician, Ear, Nose, Throat] - See instructions Jovany Slaughter MD [Primary Care Provider, Internal Medicine] - See instructions Activity Restrictions/Add. Instructions Additional Instructions/Restrictions: I am prescribing meclizine to help with your dizziness. I am also referring you to ear nose and throat and physical therapy. I encourage you to call them to schedule an appointment. Continue to hydrate well by drinking plenty of fluids. If you develop any new or worsening symptoms, or if you become concerned for your help for any reason, return to the emergency department for evaluation Clinical Impressions Clinical Impression: Dizziness Instructions Patient Instructions: DI for Syncope in Adults (Fainting), DI for Syncope in Children (Fainting) Print Language Print Language: Albanian Discharge ED Provider: Taye Ilgesias Adult HPI General Chief complaint: Syncope Stated complaint: syncope 0900 Time Seen by Provider: 06/01/25 10:50 Mode of Arrival: Ambulatory Source of Information: Patient and Relative Description of Symptoms (Recalled from ER Triage Doc. by RN): Pt presents for evaluation after having a syncopal event at home. Pt states she was walking through her home when everything went black and she fell. Pt denies hitting her head but states she hit the couch. +LOC, -BT. Pt states she has a hx of diabetes insipidus. History of Present Illness HPI narrative: Sarah Garner is a 55-year-old female with a history of diabetes insipidus, hypertension who presents to the emergency department for complaints of an episode of passing out. Patient states that she was at home and stood up from a chair and just a few seconds later developed tunnel vision and then passed out for just a few seconds. She states that she fell onto the couch but did not hit her head. She was completely back to her normal afterwards. She states that over the last few days, she has had some dizziness that seems to be worse with standing. She denies any history of strokes. She denies any recent chest pain or shortness of breath. She denies any recent illnesses. Related Data Home Medications ?Medication ?Instructions ?Recorded ?Confirmed cetirizine 10 mg tablet 10 mg PO DAILY PRN 09/02/21 04/07/25 mirabegron 50 mg tablet,extended 50 mg PO 06/08/24 04/07/25 release 24 hr (Myrbetriq) Previous Rx's ?Medication ?Instructions ?Recorded azelastine 205.5 mcg (0.15 %) 1 spray intranasal BID 90 days #30 07/12/24 nasal spray mL duloxetine 60 mg capsule,delayed See Rx Instructions .Route 04/29/25 release .COMPLEX #90 ea propranolol 20 mg tablet See Rx Instructions .Route 02/08/25 .COMPLEX #60 tabs trazodone 150 mg tablet 150 mg PO DAILY 90 days #90 tabs 02/09/25 cyclobenzaprine 10 mg tablet 10 mg PO HS 90 days #90 tabs 03/07/25 fluconazole 150 mg tablet 150 mg PO Q3D 4 doses #4 tabs 04/17/25 nitrofurantoin 100 mg PO Q12H #20 caps 04/17/25 monohydrate/macrocrystals 100 mg capsule (Macrobid) pregabalin 100 mg capsule 100 mg PO TID fibromyalgia #90 caps 05/02/25 losartan 50 mg tablet See Rx Instructions .Route 05/08/25 .COMPLEX #180 tabs sertraline 50 mg tablet 50 mg PO DAILY 90 days #90 tabs 05/08/25 amlodipine 10 mg tablet 10 mg PO DAILY for blood pressure 05/15/25 #90 tabs ezetimibe 10 mg tablet 10 mg PO DAILY #90 tabs 05/29/25 montelukast 10 mg tablet 10 mg PO DAILY #90 tabs 05/29/25 meclizine 25 mg tablet 25 mg PO DAILY #30 tabs 06/01/25 Allergies Allergy/AdvReac Type Severity Reaction Status Date / Time acetaminophen (From Lortab) Allergy Mild Hives Verified 04/07/25 08:16 amoxicillin Allergy Mild Hives Verified 04/07/25 08:16 carvedilol Allergy Mild hives Verified 04/07/25 08:16 codeine Allergy Mild Hives Verified 04/07/25 08:16 hydrocodone (From Lortab) Allergy Mild Hives Verified 04/07/25 08:16 meperidine (From Demerol) Allergy Mild Hives Verified 04/07/25 08:16 milnacipran (From Savella) Allergy Mild mouth Verified 04/07/25 08:16 swelling oxycodone Allergy Mild Hives Verified 04/07/25 08:16 phenylpropanolamine (From Allergy Mild Hives Verified 04/07/25 08:16 Hycomine (hydrocodone-PPA)) Sulfa (Sulfonamide Allergy Mild Hives Verified 04/07/25 08:16 Antibiotics) pravastatin Allergy Rash Verified 04/07/25 08:[address] [facility] Disclaimer: The information contained in this section may have been updated after the patient was seen, as this information can be updated by other users. Medical History Insomnia Diabetes insipidus Patrick disease Fibromyalgia Hypertension Osteonecrosis Surgical History History of thoracotomy H/O foot surgery H/O hand surgery H/O shoulder surgery History of cholecystectomy History of tonsillectomy History of appendectomy Family History Father Cancer Grandfather Cancer Heart attack Grandmother Cancer Diabetes Mother Heart attack Social History Smoking Status: Never smoker alcohol intake: current alcohol intake frequency: holidays/special occasions only substance use type: denies use current occupational status: disabled Travel in the last 8 weeks?: None household members: family housing: house Have you lived/traveled outside US in past 30 days?: No Contact w/someone who lives/traveled outside US past 30 days?: No Exposure to someone with infectious disease in past 14 days?: No Do you have a fever (greater than 100.4 F or 38 C)?: No Have you tested positive for COVID-19?: No Exposed to someone with COVID-19 in past 14 days?: No Do you have a sore throat?: No Do you have a cough?: No Do you have any weakness?: No Do you have any diarrhea?: No Are you experiencing any unusual bleeding?: No Do you have any muscle aches/pain?: No Do you have any abdominal pain?: No Are you experiencing loss of taste or smell?: No Other Medical History Have you received the Pneumonia Vaccine: No ROS Obtained: Yes Systems reviewed as appropriate & no additional complaints except as documented Physical Exam General General appearance: alert and in no apparent distress Head Head exam: atraumatic Eye Eye exam: Present normal appearance, PERRL and EOMI ENT ENT exam: Present normal external ear exam Neck Neck exam: Present full ROM Chest Chest inspection: Present symmetric chest wall rise Respiratory Respiratory exam: Present normal lung sounds bilaterally; Absent respiratory distress, wheezes or stridor Cardiovascular Cardiovascular exam: Present regular rate and normal rhythm Abdominal Exam Abdominal exam: Present soft; Absent distention, tenderness, guarding or rigidity Extremities Exam Extremities exam: Present normal inspection Back Exam Back exam: Present normal inspection Neurological Exam Neurological exam: Present alert, oriented X3, CN II-XII intact, normal gait and other (2-3 episodes of fast beating nystagmus that is bidirectional. No dysdiadochokinesia, normal finger-nose testing, normal fzwm-aq-[id number] test); Absent motor sensory deficit Psychiatric Psychiatric exam: Present normal affect Skin Skin exam: Present warm and dry Medical Decision Making Medical Records Screening: Per USPSTF and CDC recommendations, given the prevalence of disease in our region, it is our hospital?s policy to screen for HIV and viral Hepatitis for all patients aged 18 and over and those with ongoing risk factors. Juanjose Inquiry Pt receiving controlled substance: No Vital Signs: 06/01/25 10:41 06/01/25 10:44 06/01/25 12:00 Temperature 98.3 F Temperature Source Oral Pulse Rate 65 69 Pulse Rate [Right] 65 Respiratory Rate 18 Blood Pressure 143/99 H 134/91 H Blood Pressure [Right Arm] 143/99 H Blood Pressure Mean [Right Arm] 113 Blood Pressure Source [Right Arm] Automatic Cuff Blood Pressure Position [Right Arm] Sitting 02 Sat by Pulse Oximetry 98 97 95 Oxygen Delivery Method Room Air 06/01/25 12:30 06/01/25 13:00 06/01/25 13:30 Temperature Temperature Source Pulse Rate 66 72 Pulse Rate [Right] Respiratory Rate Blood Pressure 126/89 122/92 H 140/97 H Blood Pressure [Right Arm] Blood Pressure Mean [Right Arm] Blood Pressure Source [Right Arm] Blood Pressure Position [Right Arm] 02 Sat by Pulse Oximetry 84 L 98 96 Oxygen Delivery Method Lab Data Lab Results 06/01/25 11:02: WBC 4.2 L, RBC 3.86 L, Hgb 13.0, Hct 37.2, MCV 96.4, MCH 33.7 H, MCHC 34.9, RDW 12.2, Plt Count 217, MPV 9.1, Neut % (Auto) 58.5, Lymph % (Auto) 18.6, [place] % (Auto) 21.0 H, Eos % (Auto) 1.0, Baso % (Auto) 0.7, Neut # (Auto) 2.4, Lymph # (Auto) 0.8, [place] # (Auto) 0.9, Eos # (Auto) 0.0, Baso # (Auto) 0.0, PT 11.0, INR 0.99, Sodium 130 L, Potassium 4.4, Chloride 91 L, Carbon Dioxide 30, Anion Gap 13.4, BUN 15, Creatinine 1.20 H, Estimated Creat Clear 65, Estimated GFR 46 L, Est GFR ( Amer) 56 L, Glucose 95, Calcium 9.0, Total Bilirubin 0.4, AST 31, ALT 19, Alkaline Phosphatase 79, Troponin I < 0.01, Total Protein 8.0, Albumin 4.5, Globulin 3.5 H, Albumin/Globulin Ratio 1.3, TSH 0.16 L, Free T4 1.04 06/01/25 13:01: Urine Color Yellow, Urine Appearance Clear, Urine pH 7.0, Ur Specific Rainier <= 1.005, Urine Protein Negative, Urine Glucose (UA) Negative, Urine Ketones Negative, Urine Blood Negative, Urine Nitrate Negative, Urine Bilirubin Negative, Urine Urobilinogen 0.2, Ur Leukocyte Esterase Negative 06/01/25 11:02 06/01/25 11:02 Orders (Tests/Meds): ED MEDICATIONS Discontinued Medications Generic Name Dose Route Start Last Admin Trade Name Freq PRN Reason Stop Dose Admin Iopamidol 80 ml 06/01/25 11:59 06/01/25 12:00 Iopamidol-370 (76%);100ml Bottle IV 06/01/25 12:00 80 ml ONCE ONE Administration Meclizine HCl 25 mg 06/01/25 11:08 06/01/25 11:30 Meclizine 25mg Tablet PO 06/01/25 11:09 25 mg ONCE ONE Administration Sodium Chloride 10 ml 06/01/25 11:59 06/01/25 12:00 Sodium Chloride 0.9% 10ml Syr (Rad Only) IV 06/01/25 12:00 10 ml ONCE ONE Administration Sodium Chloride 50 ml 06/01/25 11:59 06/01/25 12:00 0.9 % Sodium Chloride 50 Ml Vial IV 06/01/25 12:00 50 ml ONCE ONE Administration ORDERS Category Date Time Status CT angio head Stat Cat Scan 06/01/25 10:[address] angio neck Stat Cat Scan 06/01/25 10:[address] head/brain wo con Stat Cat Scan 06/01/25 10:59 Completed CXR --portable [XR chest portable] Stat Exams 06/01/25 10:59 Completed CBC w/Auto Diff [Complete Blood Count Auto Diff] Stat Lab 06/01/25 11:02 Completed CMP [Comprehensive Metabolic Panel] Stat Lab 06/01/25 11:02 Completed Free T4 (Free Thyroxine) Stat Lab 06/01/25 11:02 Completed PT INR [Prothrombin Time INR] Stat Lab 06/01/25 11:02 Completed TSH [Thyroid Stimulating Hormone] Stat Lab 06/01/25 11:02 Completed Troponin I Stat Lab 06/01/25 11:02 Completed UA [Urinalysis and Microscopic] Stat Lab 06/01/25 13:01 Results ECG Data Tracing #1: I reviewed this ECG and interpreted as documented below: Normal sinus rhythm with first-degree AV block. Normal QTc. Ventricular rate normal at [address] elevation or depression Medical Decision Narrative: Sarah Garner is a 55-year-old female with a history of diabetes insipidus, hypertension who presents to the emergency department for complaints of an episode of passing out. Patient states that she was at home and stood up from a chair and just a few seconds later developed tunnel vision and then passed out for just a few seconds. She states that she fell onto the couch but did not hit her head. She was completely back to her normal afterwards. She states that over the last few days, she has had some dizziness that seems to be worse with standing. She denies any history of strokes. She denies any recent chest pain or shortness of breath. She denies any recent illnesses. On arrival, patient is mildly hypertensive but hemodynamically stable, in no acute distress, heart rate within normal limits. Afebrile. Physical exam, as stated above, reveals an overall well-appearing female in no distress. She has no focal neurological deficits. No sustained nystagmus. Pupils equal round and reactive to light. No dysdiadochokinesia. Normal finger-nose testing. Normal rzpg-gq-yfey testing. 5 out of 5 strength and sensation to bilateral upper and lower extremities. Cranial nerves II through XII intact. No fluid behind the tympanic membranes. Differential diagnosis includes, but is not limited to: Orthostatic syncope, peripheral vertigo such as BPPV, vestibular neuritis, etc., central causes of vertigo such as posterior stroke, cardiac arrhythmia, electrolyte derangement, metabolic derangement, among others. The most morbid conditions were considered and workup was based on these. Patient was given 25 mg of meclizine. EKG was interpreted by me personally and showed normal intervals. No ischemic changes. See interpretation above. Chest x-ray interpreted by me personally. No focal consolidation, no pneumothorax, no widened mediastinum, no enlargement of the cardiac silhouette. Unremarkable chest x-ray. See radiology report for details. CT head and CTA of the head and neck interpreted by me personally. No intracranial hemorrhage, mass or midline shift. No significant stenosis or large vessel occlusion. See radiology report for details. Laboratory studies show mild leukopenia at 4.2, however this appears to be her baseline. No anemia. Platelets within normal image. Coagulation studies within normal limits. Chronically low sodium near baseline at 130. Potassium normal at 4.4. Mildly elevated creatinine at 1.2, baseline appears to be around 1.1. BUN normal. Liver enzymes and bilirubin within normal limits. Troponin less than 0.01. TSH mildly low at 0.16 but free T4 within normal limits at 1.04. Urinalysis without blood or evidence of infection. On reassessment, patient has remained in stable condition. She reports that she still has some mild dizziness and has been ambulatory here in the emergency department. I have low concern for central etiology of patient's symptoms do feel that she may have a component of BPPV or other peripheral causes of vertigo. Recommended ENT follow-up as well as physical therapy. Will also prescribe course of meclizine for patient to go home with. Patient feels comfortable going home at this time and is in agreement with this plan. Return precautions were given. All questions were answered. She demonstrated understanding and was in agreement this plan. She was then discharged from the emergency department in stable condition Critical Care Critical Care Time Critical Care Time: No
--- OUTSIDE RECORDS SUMMARY | 2025-06-01 11:08 | XMS_ITS | Clinical Summary ---
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 She had pulmonary carcinoid measuring 3 cm that was removed from her right lung. In 2001 she had a lymph node removed that was producing ACTH behind her sternum. She was asymptomatic until February 2018 and she developed recurrence of symptoms as discussed in her initial visit with me. She went back to [place] in 2017 and had work-up with a [...] history exists Insurance MEDICARE ADVANTAGE Care Teams Campus Chaplain Relationship Specialty Start Date End Date Jovany Slaughter MD PCP - General Family Medicine 08/11/22
--- OUTSIDE RECORDS SUMMARY | 2025-06-01 11:08 | XMS_ITS | Encounter Summary ---
Author Organization Healthcare Address [address] [place] [address] Care Team Providers Care Scaling Machine Operator Name Role Phone Rosa Elena Anguiano APRN Primary Care Provider [phone]- [phone] Shonna Beckwith MD Unavailable Jovany Slaughter MD Primary Care Provider Uma vailable Reason for Referral * Consultation (Routine) - Closed Specialty Diagnoses / Procedures Referred By Eze belcher Referred To Contact Orthopaedic Surgery Diagnoses Pain in right hip Darrell Bland PA [address] [place] [address] Phone: tel: fax: Chris Cox MD [address] [address] Phone: tel: fax: Referral ID Status Reason Start Date Expiration Date Visits Re quested Visits Authorized [id number] Closed 01/20/2023 07/21/2024 1 1 Encounter Details Date Type Department Care Team (Late st Contact Info) Description 01/20/2023 Community [facility] [address] [place] [address] Darrell Bland PA [address] [place] [address] Pain in right hip (Primary Dx) [...] documented as of this encounter Care Teams Scaling Machine Operator Relationship Specialty Start Date End Date Rosa Elena Anguiano, RN OCCUPATIONAL [address] [id number] PCP - General 11/09/20 01/26/23 Jovany Slaughter MD [address] [place] [address] PCP - General Family Medicine 01/27/23 Shonna Beckwith MD [address] [place] [address] Consulting Physician Neurology 11/19/21 documented as of this encounter
--- OUTSIDE RECORDS SUMMARY | 2025-06-01 11:08 | XMS_ITS | Clinical Summary ---
Author Organization [employer] ([place], [place], [place], [place], [place]) Address [address] [place] [address] Care Team Providers Care Vessel Scrapper Name Role Phone Unavailable Primary Care Provider [...] HEME POLYPEP ORAL) Take by mouth. Active vllft-dr-1-dha-e hj-acjwtoj-gqi (krill oil) 1,065-488-88-80 mg Cap Take 1 tablet by mouth [...] Date Urban rded Speak language other than Lao at home Not on file 07/17/2023 Want [...] 1968 Sigmoidoscopy 1968 Depression Screening (12+) 1980 Tobacco Cessation Counseling and Screening (12+) 1980 Pap Smear 1989 Breast Cancer Screening 2008 Pneumococcal 50+ years (1 of 1 - PCV) 2018 Shingles Vaccine (Zoster) (1 of 2) 2018 DTAP/TDAP/TD VACCINES (2 - T d or Tdap) 05/09/2021 05/09/2011 COVID-19 VACCINE ( season) 2025 03/21/2021, 09/20/2020, 08/23/2020 Influenza Vaccine (#1) 2025 03/30/2020, 2018 Goals Goal Patient Goal Type Associated Problems Recent Progress Patient-Stated? Author Increase physical activity Lifestyle Rabia Key, RN Note: High BMI Intervention and follow up (physical activity) Insurance [facility] ACCESS O MAP [facility]
--- OUTSIDE RECORDS SUMMARY | 2025-06-01 11:08 | XMS_ITS | Encounter Summary ---
Author Organization [employer] ([place], [place], [place], [place], [place]) Address [address] [place] [address] Care Team Providers Care Drive Thru Order Taker Name Role Phone Unavailable Primary Care Provider Unavailabl e Encounter Details Date Type Department Care Team (Late st Contact Info) Description 05/22/2021 Transcribed Document [facility] Family Medicine [address] [place] [address] ProviderHope MD [address], [place] [address] Social History Tobacco Use Types Packs/Day Years [...] - Historical ProviderMD - 05/22/2021 11:29 AM BODY TEAM MEMBER Ambulatory Intake and History Entered On: 05/22/2021 11:34 EST Performed On: 05/22/2021 11:29 EST by CALEB WHITMAN General Info Ambulatory Accompanied By : Unaccompanied Chief Complaint : Fibromyalgia worst Lt foot and Bilat hands Primary Language : Gambian CALEB WHITMAN - 05/22/2021 11:29 EST Height and Weight, Clinical Dosing Height Source : Measured Height Entry Format : [place] Height, Feet : 5 ft(Converted to: 152 cm, 60 Inch) Height, Inches : 9 Inch(Converted to: 0 ft 9 Inch, 22.86 cm) Clinical Height : 175.26 cm Weight Source : Standing scale Weight Entry Format : [place] Clinical Dosing Weight : 77.27 kg Weight, Pounds : 170 lb Body Surface Area (BSA) : 1.93 m2 Body Mass Index : 25.2 kg/m2 (HI) [place] Body Weight : 66 kg CALEB WHITMAN [...] No Sneed Gait/Transferring : Normal, bedrest, immobile Sneed Mental Status : Oriented to own ability Sneed Fall Risk Score : 0 SNEED Fall Scale Risk Level : 0-24 Low Risk [place] Fall Interventions : Adequate lighting, Personal items within reach, Room free of clutter/spills CALEB WHITMAN - 05/22/2021 11:29 EST Sleep Apnea Risk [...]
--- OUTSIDE RECORDS SUMMARY | 2025-06-01 11:09 | XMS_ITS | Referral Summary ---
Author Organization [employer] ([place], [place], [place], [place], [place]) Address [address] [place] [address] Care Team Providers Care Compliance Intern Name Role Phone Unavailable Primary Care Provider [...] HEME POLYPEP ORAL) Take by mouth. Active zpjxt-tr-1-dha-e ln-owewywf-tez (krill oil) 1,234-893-06-80 mg Cap Take 1 tablet by mouth [...] Date Urban rded Speak language other than Greenlandic at home Not on file 07/17/2023 Want [...] Progress Patient-Stated? Author Increase physical activity Lifestyle No Rabia Gallegos, RN Note: High BMI Intervention and follow up (physical activity) Insurance [facility] ACCESS O MAP [facility]
--- OUTSIDE RECORDS SUMMARY | 2025-06-01 11:09 | XMS_ITS | Clinical Summary ---
Author Organization [facility] Address [address] [place] [address] Care Team Providers Care Mixer Operator Raw Salt Name Role Phone Shonna Beckwith MD Unavailable [...] Tdap) 05/09/2021 05/09/2011 [facility]-Depression Screening 05/20/2022 05/20/2021 [id number] Vaccine ( - season) 2025 03/21/2021, 09/20/2020, [...] this topic Medical Devices Implanted Type Area Well Driller Helper Device Identifier Shelf Expiration Date Model / Serial / Lot Chg Shell R3 3 Hole Acet 50mm - [id number] Implanted:Qty: 1 on 09/14/2023 by Chris Cox MD at [facility] Implant Right: Hip [employer]-[id number] 06/04/2033 [id number] / / [id number] Chg Screw Ref Spher Head 35mm - [id number] Implanted:Qty: 1 on 09/14/2023 by Chris Cox MD at [facility] Implant Right: Hip [employer]-[id number] 02/24/2033 [id number] / / [id number] Chg Screw Ref Spher Head 25mm - [id number] Implanted:Qty: 1 on 09/14/2023 by Chris Cox MD at [facility] Implant Right: Hip [employer]-[id number] 02/10/2033 [id number] / / [id number] Liner Or3o Dual Mbility 38 50 - [id number] Implanted:Qty: 1 on 09/14/2023 by Chris Cox MD at [facility] Implant Right: Hip [employer]-[id number] 04/04/2033 [id number] / / [id number] Polarstem Cementless Lat Tiha - [id number] Implanted:Qty: 1 on 09/14/2023 by Chris Cox MD at [facility] Implant Right: Hip [employer]-[id number] 12/18/2028 [id number] / / [id number] Chg Head Oxinium Fem 06/11 28m - [id number] Implanted:Qty: 1 on 09/14/2023 by Chris Cox MD at [facility] Implant Right: Hip [employer]-[id number] 12/21/2032 [id number] / / [id number] Liner Or3o Dual Mbility Xlpe 28/38 - [id number] Implanted:Qty: 1 on 09/14/2023 by Chris Cox MD at [facility] Implant Right: Hip [employer]-[id number] 04/23/2033 [id number] / / [id number] Insurance MEDICAID [employer] MEDICARE Advance Directives * Full Code (Latest Code Status on File) Date Activated Date Inactivated Comments 09/14/2023 9:05 AM 09/14/2023 5:09 PM Question Answer Comments Patient has decision-making capacity? Yes Care Teams Mixer Operator Raw Salt Relationship Specialty Start Date End Date Jovany Slaughter MD [address] [place] [address] PCP - General Family Medicine 01/27/23 Shonna Beckwith MD [address] [place] [address] Consulting Physician Neurology 11/19/21
--- OUTSIDE RECORDS SUMMARY | 2025-06-01 11:09 | XMS_ITS | Encounter Summary ---
Author Organization [employer] ([place], [place], [place], [place], [place]) Address [address] [place] [address] Care Team Providers Care Welding Lead Burner Name Role Phone Unavailable Primary Care Provider Unavailabl e Encounter Details Date Type Department Care Team (Late st Contact Info) Description 05/22/2021 Transcribed Document [facility] [place] Medicine [address] [place] [address] ProviderHope MD [address] [place], [place] [id number] Social History Tobacco Use Types Packs/Day Years [...] Conversion Note - Hope ProviderMD - 05/22/2021 12:08 PM WELL DRILL OPERATOR Nursing Discharge Summary Entered On: 05/22/2021 12:09 EST Performed On: 05/22/2021 12:08 EST by ZANE CAMPOS, [employer] r[employer] Documentation Discharge Date/Time : 05/22/2021 12:08 EST [...] ZANE CAMPOS, RN - 05/22/2021 12:08 EST documented in this encounter Plan of Treatment Not on file documented as of this encounter Visit Diagnoses Not on filedocumented in this encounter
--- OUTSIDE RECORDS SUMMARY | 2025-06-01 11:09 | XMS_ITS | Encounter Summary ---
Author Organization [employer] ([place], [place], [place], [place], [place]) Address [address] [place] [address] Care Team Providers Care Absorption Plant Operator Helper Name Role Phone Unavailable Primary Care Provider Unavailabl e Encounter Details Date Type Department Care Team (Late st Contact Info) Description 05/22/2021 Transcribed Document [facility] [place] Family Medicine [address] [place] [address] ProviderHope MD [address], [place] [id number] Social History Tobacco Use Types Packs/Day Years [...] - Hope ProviderMD - 05/22/2021 12:07 PM PRODUCT STEWARD Patient Education Materials Follows: Fall Prevention in [...] night-lights. ??? Place frequently used items in bidy-yj-zllsw places. Lower the shelves around your home [...] the way. ??? Do not use floor uzbek or wax that makes floors slippery. If [...] include working with a physical therapist or senior project coordinator to improve your strength, balance, and endurance. Where to find more information ??? Centers for Disease Control and Prevention, [place]: https://www.cdc.gov ??? National [place] on Aging: https://nu7qadj.fady.nih.gov Contact a health care provider if: ??? [...] provider. Document Revised: 05/28/2018 Document Reviewed: 01/28/2018 [employer] Patient Education ? 2020 [email or web address] Electronically signed by Pita Mack Conversion Workers Compensation Legal Secretary Cerner at 10/16/2022 12:47 AM CDT documented in this encounter Plan of Treatment Not on file documented as of this encounter Visit Diagnoses Not on filedocumented in this encounter
[2025-06-01 11:12] LABS: Hematocrit 37.2 % (37.0-47.0); Hemoglobin 13.0 g/dL (12.2-16.2); Immature Granulocytes % 0.2 %; Mean Corpuscular HGB Conc 34.9 g/dL (31.8-35.4); Mean Corpuscular Hemoglobin 33.7 pg (27.0-31.2); Mean Corpuscular Volume 96.4 fl (81-99); Nucleated Red Blood Cells % 0 %; Platelet Count 217 K/mm3 (142-424); Red Blood Count 3.86 M/mm3 (4.20-5.40); Red Cell Distribution Width-SD 43.4 fL; White Blood Count 4.2 K/mm3 (4.8-10.8)
[2025-06-01 11:20] LABS: Chloride 91 mmol/L (98-107)
[2025-06-01 11:21] LABS: Albumin Level 4.5 g/dl (3.5-5.0); Potassium 4.4 mmoL/L (3.5-5.1); Sodium 130 mmol/L (136-145)
[2025-06-01 11:23] LABS: Blood Urea Nitrogen 15 mg/dl (7-17); Creatinine Clearance Estimated 65 mL/min (50-200); Creatinine,Serum 1.20 mg/dl (0.52-1.04); Estimated Glomerular Filt Rate 46 ml/min (>60); GFR (African American) 56 ML/MIN (>60)
[2025-06-01 11:24] LABS: Alanine Aminotransferase 19 U/L (12-78); Albumin/Globulin Ratio 1.3 (1.1-1.8); Alkaline Phosphatase 79 U/L (38-126); Anion Gap 13.4 mEq/L (5-15); Aspartate Amino Transferase 31 U/L (14-36); Bilirubin,Total 0.4 mg/dl (0.2-1.3); Calcium 9.0 mg/dl (8.4-10.2); Carbon Dioxide 30 mmol/L (22.0-30.0); Globulin 3.5 g/dL (1.3-3.2); Glucose 95 mg/dl (74-100); INR 0.99 (0.9-1.1); Prothrombin Time 11.0 seconds (10.1-12.5); Total Protein,Serum 8.0 g/dl (6.3-8.2)
[2025-06-01] MEDS: MECLIZINE 25MG TABLET 25 MG PO (11:30)
[2025-06-01 11:38] LABS: Troponin I < 0.01 ng/ml (0.00-0.034)
[2025-06-01 11:55] LABS: Thyroid Stimulating Hormone 0.16 uIU/mL (0.465-4.68)
[2025-06-01] MEDS: IOPAMIDOL-370 (76%);100ML BOTTLE 80 ML IV (12:00)
[2025-06-01] MEDS: SODIUM CHLORIDE 0.9% 10ML SYR (RAD ONLY) 10 ML IV (12:00)
[2025-06-01] MEDS: 0.9 % SODIUM CHLORIDE 50 ML VIAL IV (12:00)
[2025-06-01 12:22] LABS: Free T4 (Free Thyroxine) 1.04 ng/dl (0.78-2.19)
--- NOTE | 2025-06-01 12:48 | PC.NURSE ---
FSBS was 71 at this time.
[2025-06-01 13:04] LABS: Microscopic, Urine URINE MICROSCOPIC (MICROSCOPIC)
[2025-06-01 13:14] LABS: Bilirubin,Urine Negative (Negative); Color,Urine YELLOW (Yellow); Glucose,Urine (UA) Negative (Negative); Ketones,Urine Negative (Negative); Leukocyte Esterase,Urine Negative (Negative); PH,Urine 7.0 (5.0-8.5); Protein,Urine Negative (Negative); Specific Gravity, Urine <= 1.005 (1.005-1.030); Urobilinogen,Urine 0.2 EU/dl (0.2)
[2025-06-01 13:59] LABS: Squamous Epithelial Cell,Urine Occasional #/hpf (0-5)
== END 2025-06-01 13:58 | disposition home or self-care (01) ==
PROVIDERS: Emergency Provider Student in an Organized Health Care Education/Training Program; PCP Family Medicine
DX: R55 Syncope and collapse (principal); R42 Dizziness and giddiness; I44.0 Atrioventricular block, first degree; I10 Essential (primary) hypertension; E23.2 Diabetes insipidus
CPT/HCPCS: 70450; 70496; 70498; 71045; 80053; 81001; 84439; 84443; 84484; 85025; 85610; 93005; 99285; Q9967